=== PATIENT | female | born 1960 | race Caucasian/White ===

== ENCOUNTER → 2016-03-17 | Outpatient (REF) | payer OTHER ==
[~2016-03-17] MED LIST: CALC500T36 PO; CLAR1TAB2 PO; CYAN25TA PO; EFFE75CA75 PO; FLON0.054; FLUT11IN INH; MULT1TAB8 PO; MULTCAP PO; PRIL40CA PO; TRAZ50TA4 PO; VIST25CA PO; VITA250L PO
[2016-03-17 11:17] LABS: MEAN CORPUSCULAR HEMOGLOBIN 24.8 pg (27.0-33.0); MEAN CORPUSCULAR HGB CONC 30.7 g/dl (32.0-36.5); MEAN CORPUSCULAR VOLUME 80.9 fl (80.0-96.0); RED CELL DISTRIBUTION WIDTH 15.9 % (11.5-14.5); WHITE BLOOD COUNT 5.7 K/mm3 (4.0-10.0)
[2016-03-17 11:43] LABS: VITAMIN B12 LEVEL 635 PG/ML (247-911)
[2016-03-17 11:57] LABS: ALBUMIN 3.8 GM/DL (3.2-5.2); ALKALINE PHOSPHATASE 92 U/L (45-117); ALT/SGPT 39 U/L (12-78); ANION GAP 8 MEQ/L (8-16); AST/SGOT 31 U/L (15-37); BILIRUBIN,TOTAL 0.1 MG/DL (0.2-1.0); BLOOD UREA NITROGEN 9 MG/DL (7-18); CALCIUM LEVEL 8.7 MG/DL (8.5-10.1); CARBON DIOXIDE LEVEL 27 MEQ/L (21-32); CHLORIDE LEVEL 107 MEQ/L (98-107); CREATININE FOR GFR 0.75 MG/DL (0.55-1.02); FREE T4 1.28 NG/DL (0.76-1.46); GLOMERULAR FILTRATION RATE > 60.0 (>51); GLUCOSE, FASTING 77 MG/DL (70-105); POTASSIUM SERUM 4.7 MEQ/L (3.5-5.1); SODIUM LEVEL 142 MEQ/L (136-145); TOTAL PROTEIN 7.6 GM/DL (6.4-8.2)
== END | disposition home or self-care (01) ==
LOC: M SFHCCAPE 08:23 → M SFHCCLAY 08:26
PROVIDERS: ATTEND Family Medicine
DX: Z98.890 Other specified postprocedural states (principal); E03.9 Hypothyroidism, unspecified

== ENCOUNTER 2016-07-28 16:12 | Inpatient (IN) | payer MEDICAID, OTHER ==
[~2016-07-28] VITALS: Ht 157.5 cm; Wt 76.9 kg
[2016-07-28] MEDS ORDERED: VIIB40TA PO (16:26)
[2016-07-28] MEDS ORDERED: HYDR1CAP25 PO (16:26)
[2016-07-28] MEDS ORDERED: PRAZ2CAP PO (16:26)
[2016-07-28] MEDS ORDERED: LEVO75TA4 PO (16:26)
[2016-07-28] MEDS ORDERED: OMEP20CA3 PO (16:26)
[2016-07-28] MEDS ORDERED: TRAZ100T4 PO (16:26)
[2016-07-28] MEDS ORDERED: LEUC10TA PO (16:26)
[2016-07-28 16:48] LABS: BASO % 0.8 % (0.0-1.0); EOS % 0.7 % (0.0-3.0); LARGE UNSTAINED CELL # 0.2 K/mm3 (0.0-0.4); LARGE UNSTAINED CELL % 2.7 % (0.0-4.0); LYMPH # 1.7 K/mm3 (1.5-4.5); LYMPH % 24.9 % (24.0-44.0); MEAN CORPUSCULAR HEMOGLOBIN 24.7 pg (27.0-33.0); MEAN CORPUSCULAR HGB CONC 31.4 g/dl (32.0-36.5); MEAN CORPUSCULAR VOLUME 78.5 fl (80.0-96.0); MONO # 0.3 K/mm3 (0.0-0.8); MONO % 4.1 % (0.0-5.0); NEUTROPHILS % 66.8 % (36.0-66.0); PLATELET COUNT, AUTOMATED 347 k/mm3 (150-450)
[2016-07-28 17:02] LABS: CONTROL LINE HCG INT CTR LINE PRESENT
[2016-07-28 17:19] LABS: ALBUMIN 3.9 GM/DL (3.2-5.2); ALBUMIN/GLOBULIN RATIO 1.08 (1.00-1.93); ALKALINE PHOSPHATASE 107 U/L (45-117); ALT/SGPT 177 U/L (12-78); ANION GAP 13 MEQ/L (8-16); AST/SGOT 240 U/L (15-37); BILIRUBIN,DIRECT 0.1 MG/DL (0.0-0.2); BILIRUBIN,TOTAL 0.3 MG/DL (0.2-1.0); BLOOD UREA NITROGEN 11 MG/DL (7-18); CALCIUM LEVEL 8.5 MG/DL (8.5-10.1); CARBON DIOXIDE LEVEL 24 MEQ/L (21-32); CHLORIDE LEVEL 98 MEQ/L (98-107); CREATININE FOR GFR 0.64 MG/DL (0.55-1.02); GLOMERULAR FILTRATION RATE > 60.0 (>51); GLUCOSE, FASTING 67 MG/DL (70-105); POTASSIUM SERUM 4.2 MEQ/L (3.5-5.1); SODIUM LEVEL 135 MEQ/L (136-145); TOTAL PROTEIN 7.5 GM/DL (6.4-8.2)
[2016-07-28] MEDS ORDERED: DEXTROSE 50% 50 ML VIAL IV ONE (18:30)
[2016-07-28 19:48] LABS: METHADONE URINE NEGATIVE (NEGATIVE)
[2016-07-29] MEDS ORDERED: PHENobarbital 30 MG TAB PO ONE (00:30)
[2016-07-29] MEDS ORDERED: LEVOTHYROXINE 0.075 MG TAB (75 MCG) PO SCH (06:00)
--- NOTE | 2016-07-29 07:28 | ECGEPIP ---
Stationary ECG Study [facility] - ED Test Date: 2016-07-28 Pat Name: ERI ARITA Department: Room: - Gender: F Display Department Manager: PB : 1960 Requested By: LISSET Adams Order Number: [id number] Reading MD: Sugey Mauricio Measurements Intervals [place] Rate: 95 P: 66 WV: 168 QRS: 18 QRSD: 98 T: 38 QT: 384 QTc: 483 Interpretive Statements SINUS RHYTHM NSTTW ABNORMALITY INCREASED RATE 02/08/14 Electronically Signed On 07-29-2016 7:28:13 EDT by Sugey Mauricio
[2016-07-29] MEDS ORDERED: OXAZEPAM 15 MG CAP PO ONE (07:30)
[2016-07-29] MEDS ORDERED: ACETAMINOPHEN 325 MG TAB PO ONE (07:30)
[2016-07-29] MEDS ORDERED: TYLE325T5 PO (11:59)
[2016-07-29] MEDS ORDERED: LORATAB PO (11:59)
[2016-07-29] MEDS ORDERED: FLUT1SPR2 (11:59)
[2016-07-29 17:55] VITALS: BP 170/108
[2016-07-29] MEDS ORDERED: hydrOXYzine 25 MG TAB PO PRN (18:30)
[2016-07-29] MEDS ORDERED: MOM 30ML SUSPENSION UDC PO PRN (18:30)
[2016-07-29] MEDS ORDERED: LORazepam 2 MG TAB PO PRN (18:30)
[2016-07-29] MEDS ORDERED: MAALOX 30 ML SUSP *UDC PO PRN (18:30)
[2016-07-29 18:32] VITALS: BP 170/108
[2016-07-29] MEDS: OMEPRAZOLE 20 MG CAP PO SCH (19:05)
[2016-07-29] MEDS: FOLIC ACID 1 MG TAB PO SCH (19:05)
[2016-07-29] MEDS: MULTIVITAMINS/MINERALS THERAP 1 TAB PO SCH (19:05)
[2016-07-29] MEDS: ACETAMINOPHEN TAB 650MG DOSE (2X325MG) PO PRN (19:06)
[2016-07-29] MEDS: THIAMINE 100 MG TAB PO SCH (23:54)
[2016-07-29] MEDS: traZODone 100 MG TAB PO SCH (23:54)
[2016-07-29] MEDS: PRAZOSIN 1 MG CAP PO SCH (23:55)
[2016-07-30 06:00] VITALS: BP 144/60
[2016-07-30] MEDS ORDERED: LEVOTHYROXINE 0.075 MG TAB (75 MCG) PO SCH (06:00)
[2016-07-30] MEDS: LEUCOVORIN 5 MG TAB PO SCH (09:19)
[2016-07-30] MEDS: FOLIC ACID 1 MG TAB PO SCH (09:20)
[2016-07-30] MEDS: LORATADINE 10 MG TAB PO SCH (09:20)
[2016-07-30] MEDS: THIAMINE 100 MG TAB PO SCH ×2 (09:20→21:22)
[2016-07-30] MEDS: OMEPRAZOLE 20 MG CAP PO SCH (09:20)
[2016-07-30] MEDS: MULTIVITAMINS/MINERALS THERAP 1 TAB PO SCH (09:20)
[2016-07-30] MEDS: ACETAMINOPHEN TAB 650MG DOSE (2X325MG) PO PRN (09:28)
[2016-07-30 09:29] VITALS: BP 119/80
[2016-07-30] MEDS: LEVOTHYROXINE 0.075 MG TAB (75 MCG) PO SCH (10:03)
[2016-07-30 12:00] VITALS: BP 118/79
[2016-07-30 18:00] VITALS: BP 133/81
[2016-07-30] MEDS: FLUTICASONE PROP 0.05% NASAL SPRAY 16 GM (FLONASE) PRN (20:49)
[2016-07-30] MEDS: traZODone 100 MG TAB PO SCH (21:22)
[2016-07-30] MEDS: QUEtiapine FUMARATE 50 MG TAB PO SCH (21:22)
[2016-07-30] MEDS: PRAZOSIN 1 MG CAP PO SCH (21:23)
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
[2016-07-30 21:45] VITALS: BP 136/84
[2016-07-30 22:24] VITALS: BP 158/98
--- NOTE | 2016-07-31 04:15 | HPE ---
DATE OF ADMISSION: 07/29/2016 HISTORY OF PRESENT ILLNESS: Please refer to psychiatric history and evaluation for further details on this admission. This examination and history is intended for medical issues, which may need treatment, followup or consult on this 55-year-old female. ALLERGIES: SULFITES. SOCIAL HISTORY: The patient resides in [place]. She is . She works at the [employer]. She does not smoke cigarettes. She drinks nightly vodka. FAMILY HISTORY: Noncontributory. PAST MEDICAL HISTORY: 1. Depression. 2. Anxiety. 3. History of latent tuberculosis. 4. History of hypothyroid, euthyroid. PAST SURGICAL HISTORY: 1. Gastric bypass 2009. 2. (C) section. 3. Varicose vein stripping. LABORATORY STUDIES: WBC 6.0, hemoglobin 11.1, hematocrit 35.7, MCV 78.5, platelets 347. Sodium 135, potassium 4.2, chloride 98, CO2 24, BUN and creatinine 11 and 0.64. AST was elevated at 240, ALT 177. TSH 0.119. EtOH was 0.387. HOME MEDICATIONS: - Tylenol 650 by mouth every 4 hours as needed for pain - Flonase nasal spray two sprays each nostril daily as needed for congestion - hydroxyzine 25 mg by mouth four times a day as needed for anxiety - leucovorin calcium 10 mg by mouth daily - levothyroxine 75 mcg by mouth daily - loratadine 10 mg by mouth daily - omeprazole 20 mg by mouth daily - prazosin 4 mg by mouth nightly for night terrors - trazodone 100 mg by mouth nightly insomnia - Viibryd 40 mg by mouth daily REVIEW OF SYSTEMS: 10-system review was done. Her only complaint was of nasal stuffiness. She did not feel the Flonase was helping. Loratadine was added. PHYSICAL EXAMINATION: 55-year-old cooperative female in no acute distress. Height 62 inches, weight 75.6 kg, body mass index (BMI) 30.5. Blood pressure 118/79, pulse 84, respirations 16, temperature 98.8. The patient is alert and oriented times three. Pupils equal and react to light. Extraocular muscles intact. Cornea and sclerae clear. Conjunctivae were normal. No facial asymmetry. Pharynx, tongue and gums pink and moist. Tongue is midline. Neck is supple without lymphadenopathy. No thyromegaly, no goiter. Carotids 2+ without bruit. Chest clear to auscultation without wheeze or retraction. Heart is regular. Abdomen is benign. Bowel sounds positive. Genitourinary/rectal: Not done. Extremities show equal strength, full range of motion. No cyanosis, clubbing or edema. Peripheral pulses equal and palpable bilaterally. Skin is warm and dry. EKG on file shows sinus rhythm. IMPRESSION/PLAN: 1. Psychiatric plan per psychiatry. 2. Euthyroid, hypothyroidism. Thyroid-stimulating hormone (TSH) slightly low. Get a thyroid panel. 3. History of alcohol abuse. Elevated liver function tests (LFTs). Get a liver panel in the morning. Monitor for alcohol withdrawal. 4. Nasal congestion. Continue Flonase. Continue loratadine.
[2016-07-31] MEDS: LEVOTHYROXINE 0.075 MG TAB (75 MCG) PO SCH (06:11)
[2016-07-31 06:32] VITALS: BP 107/70
[2016-07-31 07:27] LABS: ALBUMIN 3.4 GM/DL (3.2-5.2); ALBUMIN/GLOBULIN RATIO 1.03 (1.00-1.93); BILIRUBIN,DIRECT 0.2 MG/DL (0.0-0.2); BILIRUBIN,TOTAL 0.5 MG/DL (0.2-1.0); THYROXINE (T4) 6.9 UG/DL (4.5-12.0); TOTAL PROTEIN 6.7 GM/DL (6.4-8.2)
[2016-07-31] MEDS: FLUTICASONE PROP 0.05% NASAL SPRAY 16 GM (FLONASE) PRN (08:35)
[2016-07-31] MEDS: LEUCOVORIN 5 MG TAB PO SCH (08:36)
[2016-07-31] MEDS: MULTIVITAMINS/MINERALS THERAP 1 TAB PO SCH (08:36)
[2016-07-31] MEDS: OMEPRAZOLE 20 MG CAP PO SCH (08:36)
[2016-07-31] MEDS: FOLIC ACID 1 MG TAB PO SCH (08:36)
[2016-07-31] MEDS: THIAMINE 100 MG TAB PO SCH ×2 (08:36→21:16)
[2016-07-31] MEDS: LORATADINE 10 MG TAB PO SCH (08:36)
[2016-07-31] MEDS: ACETAMINOPHEN TAB 650MG DOSE (2X325MG) PO PRN ×3 (09:26→21:16)
--- NOTE | 2016-07-31 10:53 | MHIPNPDOC ---
[facility] Progress Note Progress Note DATE OF SERVICE: 07/31/16 HISTORY: Day 3 of admission. Pt admitted for depression, overusing alcohol. VITAL SIGNS: See below. NEW TEST RESULTS: pending CURRENT MEDICATIONS: See below. MENTAL STATUS EXAMINATION: Patient is a 55-year old female, who is dressed in hospital attire, wearing eye glasses, short hair, cooperative. Speech: Is spontaneous Language skills are good Thought processes including: goal directed Thought content: appropriate Abstract reasoning, and computation: concrete Description of associations:good. Description of abnormal or psychotic thoughts: no psychotic symptoms observed or illicted. No SI, does admitted to attempting suicide by over consumption of alcohol. Judgment: poor Insight: good. Orientation: well oriented in all spheres. Recent and remote memory: grossly intact Attention span and concentration: good. Fund of knowledge: full Mood:depressed. Affect: congruent DIAGNOSES: 1. MDD severe, recurrent, without psychotic features 2. alcohol dependence 3. s/p Gastric bypass 4. Hypothyroidism ASSESSMENT: Pt is alert and oriented. participated fully in discussion today. Taking medications as prescribed and adjusting to the unit. pt recently started a job at the [employer] and is worried about keeping the job. She is hopeful she will not to remain very long in the hospital. She states that her problems with DSS are the reason she wanted to kill herself by drinking. She did not take her bedtime meds when she drank. She was drinking daily since May, after work due to her despair over the DSS issue. She thought it would be better just to be . Pt has case management and outpatient MH services in place. She has her own apartment in [place]. She has a son in [facility] and a daughter & son in [place]. She has a family h/o alcoholism and suicide which places her at a higher risk. She was offered and agreed to begin treatment with [facility] to help her cravings for alcohol. She denies the need for rehab or inpt substance abuse treatment. She does [place] want to attend meetings [place] She does not feel her anonymity will be secure if she attended. She is willing to read materials that discuss living sober. DCP may have some to share with her. She can also obtain from the library. She asked about on-line meetings and said she may look into this as well. Pt is eating and sleeping well. Enc to attend groups daily and engage in unit milieu. Pt states it is her intent to do so. No manic symptoms observed. No psychotic symptoms illicited. Pt is depressed and is currently without her Viibryd. Her returned case inspector was contacted and she will obtain pts med from her apartment and bring it in today. MANAGEMENT PLAN: Resume Viibryd deep 40 mg po daily, begin Campral 666 mg tid daily. Discharge may occur Sunday or . Labs for thyroid, vitamin D ordered, CMP-pending TIME SPENT: 30 minutes. Vital Signs Vital Signs Date Time Temp Pulse Resp B/P (MAP) Pulse Ox O2 Delivery O2 Flow Rate FiO2 07/31/16 06:32 97.6 87 16 107/70 (82) 07/29/16 17:55 96 Room Air Laboratory Data 24H Labs Laboratory Tests 2 07/31/16 06:40: Aspartate Amino Transf (AST/SGOT) 98H, Alanine Aminotransferase (ALT/SGPT) 97H, Alkaline Phosphatase 88, Total Bilirubin 0.5#, Direct Bilirubin 0.2, Total Protein 6.7, Albumin 3.4, Albumin/Globulin Ratio 1.03, Thyroid Stimulating Hormone (TSH) 3.710, Free Thyroxine Index 2.6, Thyroxine (T4) 6.9, Triiodothyronine (T3) Uptake 37 Current Medications Current Medications Acamprosate (Campral) 666 mg TID PO ; Start 07/31/16 at 16:00; Stop 08/30/16 at 15 :59; Status UNV Acetaminophen (Tylenol Tab) 650 mg Q6HP PRN PO HEADACHE or DISCOMFORT Last administered on 07/31/16 09:26; Start 07/29/16 at 18:30; Stop 08/28/16 at 18:29 Al Hydrox/Mg Hydrox/Simethicone (Mylanta) 30 ml Q4HP PRN PO HEARTBURN/ INDIGESTION; Start 07/29/16 at 18:30; Stop 08/28/16 at 18:29 Fluticasone Propionate (Flonase 0.05% Nasal [place]) 2 spray DAILY PRN NA CONGESTION Last administered on 07/31/16 08:35; Start 07/29/16 at 18:30; Stop 08/28/16 at 18:29 Folic Acid (Folic Acid) 1 mg DAILY PO Last administered on 07/31/16 08:36; Start 07/29/16 at 09:00; Stop 08/28/16 at 08:59 Home Med (Med Rec Complete!) ASDIRECTED XX ; Start 07/29/16 at 12:00; Stop at 12:01; Status DC Hydroxyzine HCl (Atarax) 25 mg QID PRN PO ANXIETY/AGITATION Last administered on 07/30/16 09:31; Start 07/29/16 at 18:30; Stop 08/28/16 at 18:29 Leucovorin Calcium (Wellcovorin) 10 mg DAILY PO Last administered on 07/31/16 08:36; Start 07/30/16 at 09:00; Stop 08/29/16 at 08:59 Levothyroxine Sodium (Synthroid) 0.075 mg DAILY@06 PO Last administered on 08:27; Start 07/29/16 at 06:00; Stop 07/29/16 at 18:35; Status DC Levothyroxine Sodium (Synthroid) 0.075 mg DAILY@0600 PO Last administered on 06:11; Start 07/30/16 at 06:00; Stop 08/29/16 at 05:59 Levothyroxine Sodium (Synthroid) 75 mg DAILY@0600 PO ; Start 07/30/16 at 06:00; Stop 07/30/16 at 06:59; Status DC Loratadine (Claritin) 10 mg DAILY PO Last administered on 07/31/16 08:36; Start 07/30/16 at 09:00; Stop 08/29/16 at 08:59 Lorazepam (Ativan) 2 mg ASDIRECTED PRN PO SEE PROTOCOL Last administered on 07/29 19:05; Start 07/29/16 at 18:30; Stop 08/05/16 at 18:29 Magnesium Hydroxide (Milk Of Magnesia) 30 ml DAILYPRN PRN PO CONSTIPATION; Start 07/29/16 at 18:30; Stop 08/28/16 at 18:29 Miscellaneous (Unresolved Patient Own Med Order) SEE LABEL COMMENTS UNRESOLVED XX ; Start 07/29/16 at 00:01; Stop 08/28/16 at 00:00 Multivitamins (Theragram-M) 1 tab DAILY PO Last administered on 07/31/16 08:36 ; Start 07/29/16 at 09:00; Stop 08/28/16 at 08:59 Omeprazole (PriLOSEC) 20 mg DAILY PO Last administered on 07/31/16 08:36; Start 07/29/16 at 09:00; Stop 08/28/16 at 08:59 Patient Own Medication (Patient'S Own Med) Viibryd 40MG PO Daily DAILY PO ; Start 07/30/16 at 09:00; Stop 08/29/16 at 08:59; Status UNV Prazosin HCl (Minipress) 4 mg QHS PO Last administered on 07/30/16 21:23; Start 07/29/16 at 21:00; Stop 08/28/16 at 20:59 Quetiapine Fumarate (SEROquel) 50 mg QHS PO Last administered on 07/30/16 21:22 ; Start 07/30/16 at 21:00; Stop 08/29/16 at 20:59 Thiamine HCl (Thiamine HCl) 100 mg BID PO Last administered on 07/31/16 08:36; Start 07/29/16 at 21:00; Stop 08/01/16 at 20:59 Trazodone HCl (Desyrel) 100 mg QHS PO Last administered on 07/30/16 21:22; Start 07/29/16 at 21:00; Stop 08/28/16 at 20:59 Allergies Coded Allergies: Sulfa Antibiotics (Verified Allergy, Unknown, 02/09/14) Sulfites (Unverified Allergy, Unknown, 02/10/14) Christal Sharp Jul 31, 2016 10:53
[2016-07-31] MEDS: ACAMPROSATE CALCIUM 333 MG TABLET (CAMPRAL) PO SCH ×3 (12:02→21:16)
[2016-07-31 12:04] VITALS: BP 132/92
[2016-07-31] MEDS: PSEUDOEPHEDRINE 30 MG TAB PO PRN ×2 (15:06→20:15)
[2016-07-31 18:00] VITALS: BP 132/77
[2016-07-31] MEDS: QUEtiapine FUMARATE 50 MG TAB PO SCH (21:16)
[2016-07-31] MEDS: traZODone 100 MG TAB PO SCH (21:16)
[2016-07-31] MEDS: PRAZOSIN 1 MG CAP PO SCH (21:16)
[2016-08-01] MEDS: LEVOTHYROXINE 0.075 MG TAB (75 MCG) PO SCH (05:53)
[2016-08-01 06:43] VITALS: BP 102/61
[2016-08-01 07:39] LABS: ALBUMIN 3.4 GM/DL (3.2-5.2); ALBUMIN/GLOBULIN RATIO 1.03 (1.00-1.93); ALKALINE PHOSPHATASE 96 U/L (45-117); ALT/SGPT 134 U/L (12-78); ANION GAP 7 MEQ/L (8-16); AST/SGOT 181 U/L (15-37); BILIRUBIN,TOTAL 0.4 MG/DL (0.2-1.0); BLOOD UREA NITROGEN 10 MG/DL (7-18); CALCIUM LEVEL 8.8 MG/DL (8.5-10.1); CARBON DIOXIDE LEVEL 28 MEQ/L (21-32); CHLORIDE LEVEL 103 MEQ/L (98-107); CREATININE FOR GFR 0.64 MG/DL (0.55-1.02); GLOMERULAR FILTRATION RATE > 60.0 (>51); GLUCOSE, FASTING 81 MG/DL (70-105); POTASSIUM SERUM 3.9 MEQ/L (3.5-5.1); SODIUM LEVEL 138 MEQ/L (136-145); TOTAL PROTEIN 6.7 GM/DL (6.4-8.2)
[2016-08-01] MEDS: MULTIVITAMINS/MINERALS THERAP 1 TAB PO SCH (08:26)
[2016-08-01] MEDS: THIAMINE 100 MG TAB PO SCH (08:26)
[2016-08-01] MEDS: OMEPRAZOLE 20 MG CAP PO SCH (08:26)
[2016-08-01] MEDS: LEUCOVORIN 5 MG TAB PO SCH (08:27)
[2016-08-01] MEDS: LORATADINE 10 MG TAB PO SCH (08:27)
[2016-08-01] MEDS: FOLIC ACID 1 MG TAB PO SCH (08:27)
[2016-08-01] MEDS: ACAMPROSATE CALCIUM 333 MG TABLET (CAMPRAL) PO SCH ×3 (08:27→21:20)
[2016-08-01] MEDS: FLUTICASONE PROP 0.05% NASAL SPRAY 16 GM (FLONASE) PRN (08:28)
[2016-08-01 08:42] VITALS: BP 132/89
[2016-08-01] MEDS ORDERED: PSEUDOEPHEDRINE 30 MG TAB PO PRN (09:30)
--- NOTE | 2016-08-01 09:36 | IPNPDOC ---
Subjective Date Seen The patient was seen on 08/01/16. Subjective Chief Complaint/HPI The patient is a 55-year-old female admitted with a reason for visit of Unspecified Depressive D/O & Etoh Use D/O. Events since last encounter Requested to evaluate Pt for allergic rhinitis. Pt states she has had nasal allergy symptoms. She is very upset that she does not have Sudafed ordered. She states this is the only thing that works for her. She denies rhinorrhea, FRANCIS, facial pain, ST. She states she has nasal congestion and pruritis. She states that at home she uses Benadryl with Claritin and Sudafed BID on average. Constitutional: Denies: Chills, Fever Eyes: Denies: Pain, Vision change ENT: Denies: Head Aches, Ear Pain, Dysphagia Pulmonary: Denies: Dyspnea, Cough Objective Physical Examination General Exam: Positive: Alert Eye Exam: Positive: PERRLA ENT Exam: Positive: Atraumatic, Mucous membr. moist/pink, Pharynx Normal, Other ENT (no TTP over sinus areas. ) Neck Exam: Positive: Supple Chest Exam: Positive: Clear to auscultation, Normal air movement Heart Exam: Positive: Rate Normal, Regular Rhythm, Normal S1, Normal S2, Negative: Murmurs, Rubs Skin Exam: Positive: Nl turgor and temperature Assessment /Plan Problems (1) Allergic rhinitis Status: Chronic Problem Text: * Sudafed given x 2 doses yesterday. Will continue with BID prn as Pt states this is the only thing that relieves her symptoms. * Will continue with Claritin 10 mg daily. * Add Azelastine nasal spray to regimen to see if this is helpful at all. . * Continue with Flonase 2 sprays daily. * Pt refuses saline nasal spray. * Monitor. (2) Elevated LFTs Status: Acute Problem Text: * Monitor CMP. * LFTs noted to be increased from yesterday. * Caution with medications that are liver metabolized. * Check Hepatitis profile * Check RUQ U/S. Plan/VTE VTE Prophylaxis Ordered?: No (ambulatory. ) VS, I&O, 24H, Fishbone Vital Signs/I&O Vital Signs Date Time Temp Pulse Resp B/P (MAP) Pulse Ox O2 Delivery O2 Flow Rate FiO2 08/01/16 08:42 91 132/89 08/01/16 06:43 98.4 16 07/29/16 17:55 96 Room Air Laboratory Data 24H LABS Laboratory Tests 2 08/01/16 07:00: Anion Gap 7L, Glomerular Filtration Rate > 60.0, Blood Urea Nitrogen 10, Creatinine 0.64, Sodium Level 138, Potassium Level 3.9, Chloride Level 103, Carbon Dioxide Level 28, Calcium Level 8.8, Aspartate Amino Transf (AST/SGOT) 181H, Alanine Aminotransferase (ALT/SGPT) 134H, Alkaline Phosphatase 96, Total Bilirubin 0.4, Total Protein 6.7, Albumin 3.4, Albumin/Globulin Ratio 1.03 CBC/BMP Laboratory Tests 08/01/16 07:00 Calcium Level 8.8, Aspartate Amino Transf (AST/SGOT) 181 H, Alanine Aminotransferase (ALT/SGPT) 134 H, Alkaline Phosphatase 96, Total Bilirubin 0.4 , Total Protein 6.7, Albumin 3.4 Sharon Quintana Aug 01, 2016 09:36
[2016-08-01] MEDS: AZELASTINE 137MCG NASAL SPY 30 ML (ASTELIN) SCH ×2 (11:44→21:19)
[2016-08-01 11:55] VITALS: BP 108/78
--- NOTE | 2016-08-01 17:15 | MHIPNPDOC ---
[facility] Progress Note Progress Note DATE OF SERVICE: 08/01/16 HISTORY: day 4 of admission. Pt admitted with overdose by alcohol. BAL 0.38 VITAL SIGNS: See below. NEW TEST RESULTS: CURRENT MEDICATIONS: See below. MENTAL STATUS EXAMINATION: Patient is a 55-year old female, who is dressed in street clothes, short hair, glasses, good eye contact. Speech: Is spontaneous Language skills are good Thought processes including: linear Thought content: her sinuses. Abstract reasoning, and computation: good. Description of associations: good Description of abnormal or psychotic thoughts: none, denies current SI or HI. denies psychotic symptoms Judgment: limited Insight: poor. Orientation: well oriented in all spheres. Recent and remote memory: good Attention span and concentration: good Fund of knowledge: full Mood: depressed. Affect:irritable. DIAGNOSES: 1. MDD severe, recurrent, without psychotic features 2. alcohol dependence 3. s/p Gastric bypass 4. Hypothyroidism ASSESSMENT:pt attended team meeting. pt c/o lack of attention to her medical needs particularly her sinuses. Seen by Sharon today and informed that due to elevation of liver enzymes Sudafed not recommended but she did order it on pts insistence. Pt rude toward staff regarding this issue, calling her treatment "inappropriate". (it is suspected that patient may be taking more decongestant medication than she admits to taking). Pt is tolerating Campral without side effects. Informed that the team is recommending intensive outpatient alcohol treatment. Pt is reluctant to do anything that will interfere with her employment. pt reports eating and sleeping well. She is attending therapeutic programming. MANAGEMENT PLAN: continue med trial and observational status, encourage sober living and using recovery tools. Enc developing a plan that supports a sober life style. Will be referred to [facility] addiction treatment upon discharge. Staff to supply her with a list of AA meetings outside the [facility]. TIME SPENT: 30 minutes. Vital Signs Vital Signs Date Time Temp Pulse Resp B/P (MAP) Pulse Ox O2 Delivery O2 Flow Rate FiO2 08/01/16 11:55 97.9 91 16 108/78 (88) 07/29/16 17:55 96 Room Air Laboratory Data 24H Labs Laboratory Tests 2 08/01/16 07:00: Anion Gap 7L, Glomerular Filtration Rate > 60.0, Blood Urea Nitrogen 10, Creatinine 0.64, Sodium Level 138, Potassium Level 3.9, Chloride Level 103, Carbon Dioxide Level 28, Calcium Level 8.8, Aspartate Amino Transf (AST/SGOT) 181H, Alanine Aminotransferase (ALT/SGPT) 134H, Alkaline Phosphatase 96, Total Bilirubin 0.4, Total Protein 6.7, Albumin 3.4, Albumin/Globulin Ratio 1.03 CBC/BMP Laboratory Tests 08/01/16 07:00 Calcium Level 8.8, Aspartate Amino Transf (AST/SGOT) 181 H, Alanine Aminotransferase (ALT/SGPT) 134 H, Alkaline Phosphatase 96, Total Bilirubin 0.4 , Total Protein 6.7, Albumin 3.4 Current Medications Current Medications Acamprosate (Campral) 666 mg TID PO Last administered on 08/01/16 15:42; Start 07/31/16 at 09:00; Stop 08/30/16 at 08:59 Acetaminophen (Tylenol Tab) 650 mg Q6HP PRN PO HEADACHE or DISCOMFORT Last administered on 07/31/16 21:16; Start 07/29/16 at 18:30; Stop 08/01/16 at 09:35; Status DC Al Hydrox/Mg Hydrox/Simethicone (Mylanta) 30 ml Q4HP PRN PO HEARTBURN/ INDIGESTION; Start 07/29/16 at 18:30; Stop 08/28/16 at 18:29 Azelastine HCl (Astelin) 2 spray BID NA Last administered on 08/01/16 11:44; Start 08/01/16 at 09:00; Stop 08/31/16 at 08:59 Fluticasone Propionate (Flonase 0.05% Nasal [place]) 2 spray DAILY NA ; Start 08/02 at 09:00; Stop 09/01/16 at 08:59 Fluticasone Propionate (Flonase 0.05% Nasal [place]) 2 spray DAILY PRN NA CONGESTION Last administered on 08/01/16 08:28; Start 07/29/16 at 18:30; Stop 08/01/16 at 09:17; Status DC Folic Acid (Folic Acid) 1 mg DAILY PO Last administered on 08/01/16 08:27; Start 07/29/16 at 09:00; Stop 08/28/16 at 08:59 Home Med (Med Rec Complete!) ASDIRECTED XX ; Start 07/29/16 at 12:00; Stop at 12:01; Status DC Hydroxyzine HCl (Atarax) 25 mg QID PRN PO ANXIETY/AGITATION Last administered on 07/30/16 09:31; Start 07/29/16 at 18:30; Stop 08/28/16 at 18:29 Leucovorin Calcium (Wellcovorin) 10 mg DAILY PO Last administered on 08/01/16 08:27; Start 07/30/16 at 09:00; Stop 08/29/16 at 08:59 Levothyroxine Sodium (Synthroid) 0.075 mg DAILY@06 PO Last administered on 08:27; Start 07/29/16 at 06:00; Stop 07/29/16 at 18:35; Status DC Levothyroxine Sodium (Synthroid) 0.075 mg DAILY@0600 PO Last administered on 05:53; Start 07/30/16 at 06:00; Stop 08/29/16 at 05:59 Levothyroxine Sodium (Synthroid) 75 mg DAILY@0600 PO ; Start 07/30/16 at 06:00; Stop 07/30/16 at 06:59; Status DC Loratadine (Claritin) 10 mg DAILY PO Last administered on 08/01/16 08:27; Start 07/30/16 at 09:00; Stop 08/29/16 at 08:59 Lorazepam (Ativan) 2 mg ASDIRECTED PRN PO SEE PROTOCOL Last administered on 07/29 19:05; Start 07/29/16 at 18:30; Stop 08/05/16 at 18:29 Magnesium Hydroxide (Milk Of Magnesia) 30 ml DAILYPRN PRN PO CONSTIPATION; Start 07/29/16 at 18:30; Stop 08/28/16 at 18:29 Miscellaneous (Unresolved Patient Own Med Order) SEE LABEL COMMENTS UNRESOLVED XX ; Start 07/29/16 at 00:01; Stop 07/31/16 at 21:28; Status DC Multivitamins (Theragram-M) 1 tab DAILY PO Last administered on 08/01/16 08:26 ; Start 07/29/16 at 09:00; Stop 08/28/16 at 08:59 Omeprazole (PriLOSEC) 20 mg DAILY PO Last administered on 08/01/16 08:26; Start 07/29/16 at 09:00; Stop 08/28/16 at 08:59 Patient Own Medication (Patient'S Own Med) 1 ea DAILY PO Last administered on 08:26; Start 08/01/16 at 09:00; Stop 08/31/16 at 08:59 Patient Own Medication (Patient'S Own Med) Viibryd 40MG PO Daily DAILY PO ; Start 07/31/16 at 09:00; Stop 07/31/16 at 21:28; Status DC Prazosin HCl (Minipress) 4 mg QHS PO Last administered on 07/31/16 21:16; Start 07/29/16 at 21:00; Stop 08/28/16 at 20:59 Pseudoephedrine HCl (Sudafed) 30 mg BIDP PRN PO NASAL CONGESTION Last administered on 07/31/16 20:15; Start 07/31/16 at 14:45; Stop 08/01/16 at 06:00; Status DC Pseudoephedrine HCl (Sudafed) 30 mg BIDP PRN PO NASAL CONGESTION; Start at 09:30; Stop 08/31/16 at 09:29 Quetiapine Fumarate (SEROquel) 50 mg QHS PO Last administered on 07/31/16 21:16 ; Start 07/30/16 at 21:00; Stop 08/29/16 at 20:59 Thiamine HCl (Thiamine HCl) 100 mg BID PO Last administered on 08/01/16 08:26; Start 07/29/16 at 21:00; Stop 08/01/16 at 20:59 Trazodone HCl (Desyrel) 100 mg QHS PO Last administered on 07/31/16 21:16; Start 07/29/16 at 21:00; Stop 08/28/16 at 20:59 Allergies Coded Allergies: Sulfa Antibiotics (Verified Allergy, Unknown, 02/09/14) Sulfites (Unverified Allergy, Unknown, 02/10/14) Christal Sharp Aug 01, 2016 17:15
[2016-08-01 18:00] VITALS: BP 151/91
[2016-08-01] MEDS: PRAZOSIN 1 MG CAP PO SCH (21:20)
[2016-08-01] MEDS: QUEtiapine FUMARATE 50 MG TAB PO SCH (21:20)
[2016-08-01] MEDS: traZODone 100 MG TAB PO SCH (21:20)
[2016-08-02 06:08] VITALS: BP 88/53
[2016-08-02] MEDS: LEVOTHYROXINE 0.075 MG TAB (75 MCG) PO SCH (06:12)
[2016-08-02] MEDS: AZELASTINE 137MCG NASAL SPY 30 ML (ASTELIN) SCH ×2 (09:00→20:09)
[2016-08-02] MEDS: FLUTICASONE PROP 0.05% NASAL SPRAY 16 GM (FLONASE) SCH (09:07)
[2016-08-02] MEDS: FOLIC ACID 1 MG TAB PO SCH (09:08)
[2016-08-02] MEDS: LEUCOVORIN 5 MG TAB PO SCH (09:08)
[2016-08-02] MEDS: ACAMPROSATE CALCIUM 333 MG TABLET (CAMPRAL) PO SCH ×3 (09:08→22:28)
[2016-08-02] MEDS: MULTIVITAMINS/MINERALS THERAP 1 TAB PO SCH (09:09)
[2016-08-02] MEDS: OMEPRAZOLE 20 MG CAP PO SCH (09:09)
[2016-08-02] MEDS: LORATADINE 10 MG TAB PO SCH (09:09)
[2016-08-02 09:15] LABS: ALBUMIN 3.7 GM/DL (3.2-5.2); ALBUMIN/GLOBULIN RATIO 1.12 (1.00-1.93); ALKALINE PHOSPHATASE 97 U/L (45-117); ALT/SGPT 157 U/L (12-78); ANION GAP 5 MEQ/L (8-16); AST/SGOT 193 U/L (15-37); BILIRUBIN,TOTAL 0.4 MG/DL (0.2-1.0); BLOOD UREA NITROGEN 10 MG/DL (7-18); CALCIUM LEVEL 8.8 MG/DL (8.5-10.1); CARBON DIOXIDE LEVEL 29 MEQ/L (21-32); CHLORIDE LEVEL 105 MEQ/L (98-107); CREATININE FOR GFR 0.67 MG/DL (0.55-1.02); GLOMERULAR FILTRATION RATE > 60.0 (>51); GLUCOSE, FASTING 85 MG/DL (70-105); POTASSIUM SERUM 4.4 MEQ/L (3.5-5.1); SODIUM LEVEL 139 MEQ/L (136-145)
--- NOTE | 2016-08-02 10:49 | REP ---
Hepatic sonography: History: Elevated liver function studies. No comparison imaging. Findings: Scanning through the right upper quadrant of the abdomen demonstrates a somewhat hyperechoic liver parenchymal texture diffusely consistent with fatty infiltration. The only focal liver lesion is a partially septated cyst measuring 1.1 cm in greatest diameter in the right lobe. The gallbladder is normal in size with a smooth thin wall. No evidence of stone or polyp. Common bile duct is normal measuring 0.3 cm in greatest diameter. Pancreatic tail is partially obscured by abdominal gas. No pancreatic abnormality is seen. There is no evidence of ascites or right renal abnormality. The right kidney measures 10.9 x 5.5 x 4.3 cm. Impression: Evidence of fatty infiltration of the liver. 1.1 cm cyst in the right lobe of the liver. Otherwise negative. Signed by Hero Balderas MD 08/02/2016 01:34 P
--- NOTE | 2016-08-02 10:55 | MHIPNPDOC ---
[facility] Progress Note Progress Note DATE OF SERVICE: 08/02/16 HISTORY: Day 4 of admission. Pt attempting suicide by alcohol intoxication. Level at admission was 0.38 VITAL SIGNS: See below. NEW TEST RESULTS: liver ultrasound done today/elevated liver enzymes CURRENT MEDICATIONS: See below. MENTAL STATUS EXAMINATION: Patient is a 55-year old female, who is dressed appropriately, petite in stature , clean, good eye contact, complains about everything. Speech: Is spontaneous and clear Language skills are good Thought processes including: goal directed Thought content: critical of care and processes of unit. Abstract reasoning, and computation: good. Description of associations: good. Description of abnormal or psychotic thoughts: Denies current SI or HI, no psychotic symptoms illicited Judgment: limited Insight: fair. Orientation: well oriented in all spheres. Recent and remote memory: intact Attention span and concentration: good Fund of knowledge: full Mood: euthymic. Affect: irritable. DIAGNOSES: 1. MDD severe, recurrent, without psychotic features 2. alcohol dependence 3. s/p Gastric bypass 4. Hypothyroidism ASSESSMENT:pt is attending programming and is adhering to unit protocols. Taking medications as prescribed and getting along well with peers. Everyday she has a new complaint and criticizes staff and hospital about procedures. For instance she claims she has report insomnia to video games storywriter and video games storywriter has ignored this. Door Trimmer increased trazodone first day and no further reports were every received by video games storywriter that pat could not sleep. She is upset that her liver is being worked up and feels she was not made aware of it. Pt was admitted on the weekend and actions taken and information given during writers absence cannot be known. Support and reassurance provided. Pt's primary focus is returning to work and keeping her apartment. She states she will not attend programming for alcoholism or mental health unless scheduled on her day off which is . MANAGEMENT PLAN: continue observation, medications and programming. TONIO has had conversation with Pts son in [place], [place]. Meeting today with seed cleaning manager with discharge if stable. TIME SPENT: 15 minutes. Vital Signs Vital Signs Date Time Temp Pulse Resp B/P (MAP) Pulse Ox O2 Delivery O2 Flow Rate FiO2 08/02/16 06:08 97.7 86 18 88/53 (65) 07/29/16 17:55 96 Room Air Laboratory Data 24H Labs Laboratory Tests 2 08/02/16 07:47: Anion Gap 5L, Glomerular Filtration Rate > 60.0, Blood Urea Nitrogen 10, Creatinine 0.67, Sodium Level 139, Potassium Level 4.4, Chloride Level 105, Carbon Dioxide Level 29, Calcium Level 8.8, Aspartate Amino Transf (AST/SGOT) 193H, Alanine Aminotransferase (ALT/SGPT) 157H, Alkaline Phosphatase 97, Total Bilirubin 0.4, Total Protein 7.0, Albumin 3.7, Albumin/Globulin Ratio 1.12 CBC/BMP Laboratory Tests 08/02/16 07:47 Calcium Level 8.8, Aspartate Amino Transf (AST/SGOT) 193 H, Alanine Aminotransferase (ALT/SGPT) 157 H, Alkaline Phosphatase 97, Total Bilirubin 0.4 , Total Protein 7.0, Albumin 3.7 Current Medications Current Medications Acamprosate (Campral) 666 mg TID PO Last administered on 08/02/16 09:08; Start 07/31/16 at 09:00; Stop 08/30/16 at 08:59 Acetaminophen (Tylenol Tab) 650 mg Q6HP PRN PO HEADACHE or DISCOMFORT Last administered on 07/31/16 21:16; Start 07/29/16 at 18:30; Stop 08/01/16 at 09:35; Status DC Al Hydrox/Mg Hydrox/Simethicone (Mylanta) 30 ml Q4HP PRN PO HEARTBURN/ INDIGESTION; Start 07/29/16 at 18:30; Stop 08/28/16 at 18:29 Azelastine HCl (Astelin) 2 spray BID NA Last administered on 08/01/16 21:19; Start 08/01/16 at 09:00; Stop 08/31/16 at 08:59 Fluticasone Propionate (Flonase 0.05% Nasal [place]) 2 spray DAILY NA Last administered on 08/02/16 09:07; Start 08/02/16 at 09:00; Stop 09/01/16 at 08:59 Fluticasone Propionate (Flonase 0.05% Nasal [place]) 2 spray DAILY PRN NA CONGESTION Last administered on 08/01/16 08:28; Start 07/29/16 at 18:30; Stop 08/01/16 at 09:17; Status DC Folic Acid (Folic Acid) 1 mg DAILY PO Last administered on 08/02/16 09:08; Start 07/29/16 at 09:00; Stop 08/28/16 at 08:59 Home Med (Med Rec Complete!) ASDIRECTED XX ; Start 07/29/16 at 12:00; Stop at 12:01; Status DC Hydroxyzine HCl (Atarax) 25 mg QID PRN PO ANXIETY/AGITATION Last administered on 07/30/16 09:31; Start 07/29/16 at 18:30; Stop 08/28/16 at 18:29 Leucovorin Calcium (Wellcovorin) 10 mg DAILY PO Last administered on 08/02/16 09:08; Start 07/30/16 at 09:00; Stop 08/29/16 at 08:59 Levothyroxine Sodium (Synthroid) 0.075 mg DAILY@06 PO Last administered on 08:27; Start 07/29/16 at 06:00; Stop 07/29/16 at 18:35; Status DC Levothyroxine Sodium (Synthroid) 0.075 mg DAILY@0600 PO Last administered on 06:12; Start 07/30/16 at 06:00; Stop 08/29/16 at 05:59 Levothyroxine Sodium (Synthroid) 75 mg DAILY@0600 PO ; Start 07/30/16 at 06:00; Stop 07/30/16 at 06:59; Status DC Loratadine (Claritin) 10 mg DAILY PO Last administered on 08/02/16 09:09; Start 07/30/16 at 09:00; Stop 08/29/16 at 08:59 Lorazepam (Ativan) 2 mg ASDIRECTED PRN PO SEE PROTOCOL Last administered on 07/29 19:05; Start 07/29/16 at 18:30; Stop 08/05/16 at 18:29 Magnesium Hydroxide (Milk Of Magnesia) 30 ml DAILYPRN PRN PO CONSTIPATION; Start 07/29/16 at 18:30; Stop 08/28/16 at 18:29 Miscellaneous (Unresolved Patient Own Med Order) SEE LABEL COMMENTS UNRESOLVED XX ; Start 07/29/16 at 00:01; Stop 07/31/16 at 21:28; Status DC Multivitamins (Theragram-M) 1 tab DAILY PO Last administered on 08/02/16 09:09 ; Start 07/29/16 at 09:00; Stop 08/28/16 at 08:59 Omeprazole (PriLOSEC) 20 mg DAILY PO Last administered on 08/02/16 09:09; Start 07/29/16 at 09:00; Stop 08/28/16 at 08:59 Patient Own Medication (Patient'S Own Med) 1 ea DAILY PO Last administered on 09:08; Start 08/01/16 at 09:00; Stop 08/31/16 at 08:59 Patient Own Medication (Patient'S Own Med) Viibryd 40MG PO Daily DAILY PO ; Start 07/31/16 at 09:00; Stop 07/31/16 at 21:28; Status DC Prazosin HCl (Minipress) 4 mg QHS PO Last administered on 08/01/16 21:20; Start 07/29/16 at 21:00; Stop 08/28/16 at 20:59 Pseudoephedrine HCl (Sudafed) 30 mg BIDP PRN PO NASAL CONGESTION Last administered on 07/31/16 20:15; Start 07/31/16 at 14:45; Stop 08/01/16 at 06:00; Status DC Pseudoephedrine HCl (Sudafed) 30 mg BIDP PRN PO NASAL CONGESTION; Start at 09:30; Stop 08/31/16 at 09:29 Quetiapine Fumarate (SEROquel) 50 mg QHS PO Last administered on 08/01/16 21:20 ; Start 07/30/16 at 21:00; Stop 08/29/16 at 20:59 Thiamine HCl (Thiamine HCl) 100 mg BID PO Last administered on 08/01/16 08:26; Start 07/29/16 at 21:00; Stop 08/01/16 at 20:59; Status DC Trazodone HCl (Desyrel) 100 mg QHS PO Last administered on 08/01/16 21:20; Start 07/29/16 at 21:00; Stop 08/28/16 at 20:59 Allergies Coded Allergies: Sulfa Antibiotics (Verified Allergy, Unknown, 02/09/14) Sulfites (Unverified Allergy, Unknown, 02/10/14) Christal Sharp Aug 02, 2016 10:55
[2016-08-02 12:19] VITALS: BP 132/91
[2016-08-02] MEDS: IBUPROFEN 400 MG TAB PO PRN (13:11)
[2016-08-02 18:00] VITALS: BP 127/76
[2016-08-02] MEDS: PRAZOSIN 1 MG CAP PO SCH (22:28)
[2016-08-02] MEDS: QUEtiapine FUMARATE 50 MG TAB PO SCH (22:28)
[2016-08-02] MEDS: traZODone 100 MG TAB PO SCH (22:29)
[2016-08-03] MEDS: LEVOTHYROXINE 0.075 MG TAB (75 MCG) PO SCH (06:06)
[2016-08-03 06:36] VITALS: BP 115/63
[2016-08-03 08:22] LABS: ALBUMIN 3.6 GM/DL (3.2-5.2); ALBUMIN/GLOBULIN RATIO 1.06 (1.00-1.93); ALKALINE PHOSPHATASE 99 U/L (45-117); ALT/SGPT 154 U/L (12-78); ANION GAP 7 MEQ/L (8-16); AST/SGOT 166 U/L (15-37); BILIRUBIN,TOTAL 0.4 MG/DL (0.2-1.0); BLOOD UREA NITROGEN 12 MG/DL (7-18); CALCIUM LEVEL 8.8 MG/DL (8.5-10.1); CARBON DIOXIDE LEVEL 26 MEQ/L (21-32); CHLORIDE LEVEL 108 MEQ/L (98-107); CREATININE FOR GFR 0.71 MG/DL (0.55-1.02); GLOMERULAR FILTRATION RATE > 60.0 (>51); GLUCOSE, FASTING 78 MG/DL (70-105); POTASSIUM SERUM 4.3 MEQ/L (3.5-5.1); SODIUM LEVEL 141 MEQ/L (136-145)
[2016-08-03] MEDS: AZELASTINE 137MCG NASAL SPY 30 ML (ASTELIN) SCH ×2 (09:00→21:45)
[2016-08-03] MEDS: FOLIC ACID 1 MG TAB PO SCH (09:04)
[2016-08-03] MEDS: LEUCOVORIN 5 MG TAB PO SCH (09:04)
[2016-08-03] MEDS: ACAMPROSATE CALCIUM 333 MG TABLET (CAMPRAL) PO SCH ×3 (09:04→21:46)
[2016-08-03] MEDS: FLUTICASONE PROP 0.05% NASAL SPRAY 16 GM (FLONASE) SCH (09:04)
[2016-08-03] MEDS: MULTIVITAMINS/MINERALS THERAP 1 TAB PO SCH (09:04)
[2016-08-03] MEDS: OMEPRAZOLE 20 MG CAP PO SCH (09:04)
[2016-08-03] MEDS: LORATADINE 10 MG TAB PO SCH (09:04)
[2016-08-03 12:00] VITALS: BP 115/83
[2016-08-03] MEDS: IBUPROFEN 400 MG TAB PO PRN (14:30)
--- NOTE | 2016-08-03 16:51 | MHIPNPDOC ---
[facility] Progress Note Progress Note DATE OF SERVICE: 08/03/16 HISTORY: day 6 of admission, pt admitted following SI after becoming intoxicated on Alcohol. VITAL SIGNS: See below. NEW TEST RESULTS: na CURRENT MEDICATIONS: See below. MENTAL STATUS EXAMINATION: Patient is a 55-year old female, who is wearing street clothes, appropriately attired, good eye contact. Speech: Is clear Language skills are good Thought processes including: goal directed Thought content: appropriate Abstract reasoning, and computation: good. Description of associations: good. Description of abnormal or psychotic thoughts: pt is no longer having thoughts or intent to commit suicide, no psychotic symptoms observed. Judgment: limited Insight: fair. Orientation: well oriented Recent and remote memory: intact Attention span and concentration: good Fund of knowledge: full Mood: anxious. Affect: congruent DIAGNOSES: 1. MDD severe, recurrent, without psychotic features 2. alcohol dependence 3. s/p Gastric bypass 4. Hypothyroidism ASSESSMENT:pt requested an additional day of programming and in-patient services to help solidify her recovery goals. she is active in groups and finds them very beneficial. She is social and getting along well with peers. Sleep is improved on higher dose of trazodone. Pt if a bit more in tune with how she presents herself to people and apologized for being pushy. Pt assured that was not necessary and we are here to help her. Pt is eating and drinking well. Compliant with medications. No behavior challenges on the unit. MANAGEMENT PLAN: continue meds and close observation, discharge is planned for tomorrow. TIME SPENT: 15minutes. Vital Signs Vital Signs Date Time Temp Pulse Resp B/P (MAP) Pulse Ox O2 Delivery O2 Flow Rate FiO2 08/03/16 12:00 97.7 63 18 115/83 (94) 07/29/16 17:55 96 Room Air Laboratory Data 24H Labs Laboratory Tests 2 08/03/16 06:58: Anion Gap 7L, Glomerular Filtration Rate > 60.0, Blood Urea Nitrogen 12, Creatinine 0.71, Sodium Level 141, Potassium Level 4.3, Chloride Level 108H, Carbon Dioxide Level 26, Calcium Level 8.8, Aspartate Amino Transf (AST/SGOT) 166H, Alanine Aminotransferase (ALT/SGPT) 154H, Alkaline Phosphatase 99, Total Bilirubin 0.4, Total Protein 7.0, Albumin 3.6, Albumin/Globulin Ratio 1.06 CBC/BMP Laboratory Tests 08/03/16 06:58 Calcium Level 8.8, Aspartate Amino Transf (AST/SGOT) 166 H, Alanine Aminotransferase (ALT/SGPT) 154 H, Alkaline Phosphatase 99, Total Bilirubin 0.4 , Total Protein 7.0, Albumin 3.6 Current Medications Current Medications Acamprosate (Campral) 666 mg TID PO Last administered on 08/03/16 15:53; Start 07/31/16 at 09:00; Stop 08/30/16 at 08:59 Acetaminophen (Tylenol Tab) 650 mg Q6HP PRN PO HEADACHE or DISCOMFORT Last administered on 07/31/16 21:16; Start 07/29/16 at 18:30; Stop 08/01/16 at 09:35; Status DC Al Hydrox/Mg Hydrox/Simethicone (Mylanta) 30 ml Q4HP PRN PO HEARTBURN/ INDIGESTION; Start 07/29/16 at 18:30; Stop 08/28/16 at 18:29 Azelastine HCl (Astelin) 2 spray BID NA Last administered on 08/02/16 20:09; Start 08/01/16 at 09:00; Stop 08/31/16 at 08:59 Fluticasone Propionate (Flonase 0.05% Nasal [place]) 2 spray DAILY NA Last administered on 08/03/16 09:04; Start 08/02/16 at 09:00; Stop 09/01/16 at 08:59 Fluticasone Propionate (Flonase 0.05% Nasal [place]) 2 spray DAILY PRN NA CONGESTION Last administered on 08/01/16 08:28; Start 07/29/16 at 18:30; Stop 08/01/16 at 09:17; Status DC Folic Acid (Folic Acid) 1 mg DAILY PO Last administered on 08/03/16 09:04; Start 07/29/16 at 09:00; Stop 08/28/16 at 08:59 Home Med (Med Rec Complete!) ASDIRECTED XX ; Start 07/29/16 at 12:00; Stop at 12:01; Status DC Hydroxyzine HCl (Atarax) 25 mg QID PRN PO ANXIETY/AGITATION Last administered on 07/30/16 09:31; Start 07/29/16 at 18:30; Stop 08/28/16 at 18:29 Ibuprofen (Advil) 400 mg Q8HP PRN PO PAIN Last administered on 08/03/16 14:30; Start 08/02/16 at 12:30; Stop 09/01/16 at 12:29 Leucovorin Calcium (Wellcovorin) 10 mg DAILY PO Last administered on 08/03/16 09:04; Start 07/30/16 at 09:00; Stop 08/29/16 at 08:59 Levothyroxine Sodium (Synthroid) 0.075 mg DAILY@06 PO Last administered on 08:27; Start 07/29/16 at 06:00; Stop 07/29/16 at 18:35; Status DC Levothyroxine Sodium (Synthroid) 0.075 mg DAILY@0600 PO Last administered on 06:06; Start 07/30/16 at 06:00; Stop 08/03/16 at 15:34; Status DC Levothyroxine Sodium (Synthroid) 75 mcg DAILY@0600 PO ; Start 08/04/16 at 06:00; Stop 09/03/16 at 05:59 Levothyroxine Sodium (Synthroid) 75 mg DAILY@0600 PO ; Start 07/30/16 at 06:00; Stop 07/30/16 at 06:59; Status DC Loratadine (Claritin) 10 mg DAILY PO Last administered on 08/03/16 09:04; Start 07/30/16 at 09:00; Stop 08/29/16 at 08:59 Lorazepam (Ativan) 2 mg ASDIRECTED PRN PO SEE PROTOCOL Last administered on 07/29 19:05; Start 07/29/16 at 18:30; Stop 08/05/16 at 18:29 Magnesium Hydroxide (Milk Of Magnesia) 30 ml DAILYPRN PRN PO CONSTIPATION; Start 07/29/16 at 18:30; Stop 08/28/16 at 18:29 Miscellaneous (Unresolved Patient Own Med Order) SEE LABEL COMMENTS UNRESOLVED XX ; Start 07/29/16 at 00:01; Stop 07/31/16 at 21:28; Status DC Multivitamins (Theragram-M) 1 tab DAILY PO Last administered on 08/03/16 09:04 ; Start 07/29/16 at 09:00; Stop 08/28/16 at 08:59 Omeprazole (PriLOSEC) 20 mg DAILY PO Last administered on 08/03/16 09:04; Start 07/29/16 at 09:00; Stop 08/28/16 at 08:59 Patient Own Medication (Patient'S Own Med) 1 ea DAILY PO Last administered on 09:04; Start 08/01/16 at 09:00; Stop 08/31/16 at 08:59 Patient Own Medication (Patient'S Own Med) Viibryd 40MG PO Daily DAILY PO ; Start 07/31/16 at 09:00; Stop 07/31/16 at 21:28; Status DC Prazosin HCl (Minipress) 4 mg QHS PO Last administered on 08/02/16 22:28; Start 07/29/16 at 21:00; Stop 08/28/16 at 20:59 Pseudoephedrine HCl (Sudafed) 30 mg BIDP PRN PO NASAL CONGESTION Last administered on 07/31/16 20:15; Start 07/31/16 at 14:45; Stop 08/01/16 at 06:00; Status DC Pseudoephedrine HCl (Sudafed) 30 mg BIDP PRN PO NASAL CONGESTION Last administered on 08/03/16 11:42; Start 08/01/16 at 09:30; Stop 08/31/16 at 09:29 Quetiapine Fumarate (SEROquel) 50 mg QHS PO Last administered on 08/02/16 22:28 ; Start 07/30/16 at 21:00; Stop 08/29/16 at 20:59 Thiamine HCl (Thiamine HCl) 100 mg BID PO Last administered on 08/01/16 08:26; Start 07/29/16 at 21:00; Stop 08/01/16 at 20:59; Status DC Trazodone HCl (Desyrel) 100 mg QHS PO Last administered on 08/01/16 21:20; Start 07/29/16 at 21:00; Stop 08/02/16 at 10:52; Status DC Trazodone HCl (Desyrel) 200 mg QHS PO Last administered on 08/02/16 22:29; Start 08/02/16 at 21:00; Stop 09/01/16 at 20:59 Allergies Coded Allergies: Sulfa Antibiotics (Verified Allergy, Unknown, 02/09/14) Sulfites (Unverified Allergy, Unknown, 02/10/14) Christal Sharp Aug 03, 2016 16:51
[2016-08-03 18:31] VITALS: BP 123/72
[2016-08-03] MEDS: QUEtiapine FUMARATE 50 MG TAB PO SCH (21:45)
[2016-08-03] MEDS: traZODone 100 MG TAB PO SCH (21:45)
[2016-08-03 21:47] VITALS: BP 115/74
[2016-08-03] MEDS: PRAZOSIN 1 MG CAP PO SCH (21:47)
[2016-08-04] MEDS ORDERED: LEVOTHYROXINE 75MCG TABLET (0.075MG) PO SCH (06:00)
[2016-08-04 07:17] VITALS: BP 100/57
[2016-08-04 08:21] LABS: ALBUMIN 3.6 GM/DL (3.2-5.2); ALBUMIN/GLOBULIN RATIO 1.09 (1.00-1.93); ALKALINE PHOSPHATASE 98 U/L (45-117); ALT/SGPT 145 U/L (12-78); ANION GAP 5 MEQ/L (8-16); AST/SGOT 136 U/L (15-37); BILIRUBIN,TOTAL 0.3 MG/DL (0.2-1.0); BLOOD UREA NITROGEN 14 MG/DL (7-18); CALCIUM LEVEL 8.6 MG/DL (8.5-10.1); CARBON DIOXIDE LEVEL 28 MEQ/L (21-32); CHLORIDE LEVEL 109 MEQ/L (98-107); CREATININE FOR GFR 0.72 MG/DL (0.55-1.02); GLOMERULAR FILTRATION RATE > 60.0 (>51); GLUCOSE, FASTING 81 MG/DL (70-105); POTASSIUM SERUM 4.4 MEQ/L (3.5-5.1); SODIUM LEVEL 142 MEQ/L (136-145); TOTAL PROTEIN 6.9 GM/DL (6.4-8.2)
[2016-08-04] MEDS: FLUTICASONE PROP 0.05% NASAL SPRAY 16 GM (FLONASE) SCH (08:27)
[2016-08-04] MEDS: LORATADINE 10 MG TAB PO SCH (08:27)
[2016-08-04] MEDS: FOLIC ACID 1 MG TAB PO SCH (08:27)
[2016-08-04] MEDS: MULTIVITAMINS/MINERALS THERAP 1 TAB PO SCH (08:27)
[2016-08-04] MEDS: OMEPRAZOLE 20 MG CAP PO SCH (08:27)
[2016-08-04] MEDS: LEUCOVORIN 5 MG TAB PO SCH (08:27)
[2016-08-04] MEDS: ACAMPROSATE CALCIUM 333 MG TABLET (CAMPRAL) PO SCH (08:30)
[2016-08-04] MEDS: AZELASTINE 137MCG NASAL SPY 30 ML (ASTELIN) SCH (08:35)
[2016-08-04] MEDS ORDERED: ACAM0.05 PO (10:50)
[2016-08-04] MEDS ORDERED: QUET5TAB PO (10:50)
--- NOTE | 2016-08-04 13:50 | MHDSPDOC ---
[facility] Discharge Summary Discharge Summary DATE OF ADMISSION: Jul 29, 2016 at 14:51 DATE OF DISCHARGE: Aug 04, 2016 at 11:00 DISCHARGE DIAGNOSES: 1. MDD severe, recurrent, without psychotic features 2. alcohol dependence 3. s/p Gastric bypass 4. Hypothyroidism REASON FOR ADMISSION:pt was attempting to over use alcohol in a suicide attempt. CONSULTANTS INVOLVED:ultrasound, lab, medicine, psychiatry TREATMENT AND PROGRESS ON THE UNIT : pt began to stabilize rather quickly on the unit. She was very concerned about her sinuses and criticized the staff and hospital for what she perceived as bad care. Needs were addressed and concerns resolved to patient satisfaction. She was upset when medicine ordered an ultrasound of her liver and she did not understand why. Staff worked diligently to answer all her questions and assure her she would informed of all results. HOSPITAL COURSE: pt accepted offer of Campral to help with cravings for alcohol. It seemed to help her and she will be discharged on the medication. She also relies on Seroquel at so this was resumed. very few medication changes made , Emphasis was on sobriety and the importance of remaining abstinent. Pt has an awareness now of on-line help for alcoholism as well as community resources she can access. She agreed to an evaluation at [facility] addiction services. Pt had some sleep issues on the unit but these were also resolved to her satisfaction. Pt attended programming and was actively involved in the groups. This was very therapeutic for her and she asked to remain until the end of the week to complete the group cycles. She states they were of great help to her. Risks and benefits of medications discussed and questions answered. DISCHARGE ASSESSMENT:Pt is aware of the hazards to her liver should she continue to drink. She was informed of the ultrasound results of a fatty liver and advised to follow up with PCP. Liver enzymes are elevated and pt is aware of this. Pt advised to request a copy of her records so her PCP can evaluate them and help her make a plan of care. Also informed of small cyst found on ultrasound. Encouraged to use medications sparingly to help protect the liver but to comply with recommendations. Pt is agreeable to Case management services. She is anxious to return to work and to her apartment. She is optimistic she can remain alcohol free and has done so successfully in the past. She denies the desire to and is willing to face the DSS investigation regarding mother's assets. MENTAL STATUS EXAMINATION ON DISCHARGE: Patient is a 55-year old female, who is dressed in street clothes, cooperative, making good eye contact. Speech is clear Language skills are good Thought processes : linerar Thought content: appropriate Abstract reasoning, and computation: good Description of associations: good Description of abnormal or psychotic thoughts: none Judgment: fair Insight: good Orientation to person, place, time and situation Recent and remote memory: intact Attention span and concentration: good Fund of knowledge: full Mood: euthymic Affect: congruent MEDICATIONS ON DISCHARGE: campral for alcohol cravings seroquel for mood stability. PLAN/FOLLOWUP ARRANGEMENTS: [facility] addiction treatment [place] and [facility] The amount of time spent in the coordination of care for this patient was approximately 30 minutes. Vital Signs/I&Os Vital Signs Date Time Temp Pulse Resp B/P (MAP) Pulse Ox O2 Delivery O2 Flow Rate FiO2 08/04/16 07:17 98.0 58 16 100/57 (71) 07/29/16 17:55 96 Room Air Laboratory Data Labs 24H Laboratory Tests 2 08/04/16 07:24: Anion Gap 5L, Glomerular Filtration Rate > 60.0, Blood Urea Nitrogen 14, Creatinine 0.72, Sodium Level 142, Potassium Level 4.4, Chloride Level 109H, Carbon Dioxide Level 28, Calcium Level 8.6, Aspartate Amino Transf (AST/SGOT) 136H, Alanine Aminotransferase (ALT/SGPT) 145H, Alkaline Phosphatase 98, Total Bilirubin 0.3, Total Protein 6.9, Albumin 3.6, Albumin/Globulin Ratio 1.09 CBC/BMP Laboratory Tests 08/04/16 07:24 Calcium Level 8.6, Aspartate Amino Transf (AST/SGOT) 136 H, Alanine Aminotransferase (ALT/SGPT) 145 H, Alkaline Phosphatase 98, Total Bilirubin 0.3 , Total Protein 6.9, Albumin 3.6 Medications Scheduled (Viibryd) 40 Mg Tab, 40 MG PO DAILY, (Reported) Acamprosate Calcium (Acamprosate Calcium Dr) 333 Mg Tab, 666 MG PO TID for SEE LABEL COMMENTS for 7 Days, #21 Leucovorin Calcium (Leucovorin Calcium) 10 Mg Tab, 10 MG PO DAILY, (Reported) Levothyroxine Sodium (Synthroid) 75 Mcg Tab, 75 MCG PO DAILY, (Reported) Loratadine (Loratadine Allergy Relief) 10 Mg Tab, 10 MG PO DAILY, (Reported) Omeprazole (Omeprazole) 20 Mg Cap, 20 MG PO DAILY, (Reported) Prazosin Hcl (Prazosin HCl) 2 Mg Cap, 4 MG PO QHS for night terrors, (Reported) Quetiapine Fumerate (Quetiapine Fumarate) 50 Mg Tab, 50 MG PO QHS for MOOD for 7 Days, #7 Scheduled PRN Fluticasone Propionate (Fluticasone Propionate 0.05%) 120 [place]/16 Gm Naspr, 2 SPRAY NA DAILY PRN for CONGESTION, (Reported) PER NOSTRIL Hydroxyzine Pamoate (Hydroxyzine Pamoate) 25 Mg Cap, 25 MG PO QID PRN for ANXIETY/AGITATION, (Reported) Allergies Coded Allergies: Sulfa Antibiotics (Verified Allergy, Unknown, 02/09/14) Sulfites (Unverified Allergy, Unknown, 02/10/14) Christal Sharp Aug 04, 2016 13:50
== END 2016-08-04 11:00 | disposition home or self-care (01) | DRG 751 ==
LOC: M ED 17:51 → M ED INP 07-29 14:51 → M PSY 07-29 16:39
PROVIDERS: ADMIT Psychiatry & Neurology Psychiatry; ATTEND Psychiatry & Neurology Psychiatry
DX: F33.2 Major depressive disorder, recurrent severe without psychotic features (principal); E03.9 Hypothyroidism, unspecified; R79.89 Other specified abnormal findings of blood chemistry; J30.9 Allergic rhinitis, unspecified; F10.20 Alcohol dependence, uncomplicated; Z79.899 Other long term (current) drug therapy; Z88.2 Allergy status to sulfonamides; Z98.84 Bariatric surgery status

== ENCOUNTER → 2016-08-17 | Outpatient (REF) | payer MEDICAID, OTHER ==
[~2016-08-17] MED LIST changes: +ACAM0.05 PO; +FLUT1SPR2; +HYDR1CAP25 PO; +LEUC10TA PO; +LEVO75TA4 PO; +LORATAB PO; +OMEP20CA3 PO; +PRAZ2CAP PO; +QUET5TAB PO; +TRAZ100T4 PO; +TYLE325T5 PO; +VIIB40TA PO
[2016-08-17 17:37] LABS: ALBUMIN 3.6 GM/DL (3.2-5.2); ALBUMIN/GLOBULIN RATIO 1.06 (1.00-1.93); ALKALINE PHOSPHATASE 78 U/L (45-117); ALT/SGPT 31 U/L (12-78); AST/SGOT 21 U/L (15-37); BILIRUBIN,DIRECT < 0.1 MG/DL (0.0-0.2); BILIRUBIN,TOTAL 0.2 MG/DL (0.2-1.0); FREE T4 1.21 NG/DL (0.76-1.46); GAMMA GLUTAMYLTRANSPEPTIDASE 51 U/L (5-55)
== END ==
LOC: M SFHCCLAY 13:20
PROVIDERS: ATTEND Family Medicine
DX: K75.9 Inflammatory liver disease, unspecified (principal); E03.9 Hypothyroidism, unspecified

== ENCOUNTER → 2017-06-11 | Outpatient (REF) | payer OTHER ==
[2017-06-11 11:35] LABS: HEMATOCRIT 34.6 % (36.0-47.0); HEMOGLOBIN 10.9 g/dl (12.0-15.5); MEAN CORPUSCULAR HEMOGLOBIN 25.4 pg (27.0-33.0); MEAN CORPUSCULAR HGB CONC 31.5 g/dl (32.0-36.5); MEAN CORPUSCULAR VOLUME 80.7 fl (80.0-96.0); PLATELET COUNT, AUTOMATED 387 10^3/uL (150-450); RED BLOOD COUNT 4.29 10^6/uL (4.00-5.40); RED CELL DISTRIBUTION WIDTH 15.6 % (11.5-14.5); WHITE BLOOD COUNT 5.4 10^3/uL (4.0-10.0)
[2017-06-11 12:13] LABS: IRON (FE) 39 UG/DL (50-170)
[2017-06-11 12:15] LABS: PTH INTACT 99.4 PG/ML (18.5-88.0)
== END ==
LOC: M SFHCCLAY 09:26
DX: Z98.84 Bariatric surgery status (principal)

== ENCOUNTER → 2017-06-14 | Outpatient (REF) | payer OTHER ==
[2017-06-15 12:14] LABS: FREE T4 0.96 NG/DL (0.76-1.46)
== END ==
LOC: M SFHCCLAY 15:40
DX: E03.9 Hypothyroidism, unspecified (principal)

== ENCOUNTER → 2017-08-24 | Outpatient (REF) | payer OTHER ==
[2017-08-24 11:56] LABS: HEMATOCRIT 33.4 % (36.0-47.0); HEMOGLOBIN 10.5 g/dl (12.0-15.5); MEAN CORPUSCULAR HEMOGLOBIN 25.3 pg (27.0-33.0); MEAN CORPUSCULAR HGB CONC 31.4 g/dl (32.0-36.5); MEAN CORPUSCULAR VOLUME 80.5 fl (80.0-96.0); PLATELET COUNT, AUTOMATED 319 10^3/uL (150-450); RED BLOOD COUNT 4.15 10^6/uL (4.00-5.40); RED CELL DISTRIBUTION WIDTH 15.6 % (11.5-14.5); WHITE BLOOD COUNT 3.8 10^3/uL (4.0-10.0)
[2017-08-24 12:32] LABS: IRON (FE) 26 UG/DL (50-170); TOTAL IRON BINDING CAPACITY 431 UG/DL (250-450)
== END ==
LOC: M SFHCCLAY 11:46
DX: D50.9 Iron deficiency anemia, unspecified (principal); E03.9 Hypothyroidism, unspecified
CPT/HCPCS: 83550

== ENCOUNTER 2017-09-10 06:55 | Outpatient (CLI) | payer OTHER ==
[2017-09-10] MEDS: IRON SUCROSE 500 MG in NS 250 ML IV (07:46)
== END 2017-09-10 13:25 | disposition home or self-care (01) ==
LOC: M INFU 06:55
DX: D50.9 Iron deficiency anemia, unspecified (principal); Z98.84 Bariatric surgery status; Z88.2 Allergy status to sulfonamides; Z79.899 Other long term (current) drug therapy
CPT/HCPCS: J1756

== ENCOUNTER 2017-09-27 06:55 | Outpatient (CLI) | payer OTHER ==
[2017-09-27] MEDS: IRON SUCROSE 500 MG in NS 250 ML IV (07:36)
== END 2017-09-27 12:30 | disposition home or self-care (01) ==
LOC: M INFU 06:55
DX: D50.9 Iron deficiency anemia, unspecified (principal); Z98.84 Bariatric surgery status; Z79.899 Other long term (current) drug therapy; Z88.2 Allergy status to sulfonamides
CPT/HCPCS: J1756

== ENCOUNTER → 2017-10-03 | Outpatient (REF) | payer OTHER ==
[2017-10-03 11:53] LABS: HEMATOCRIT 35.9 % (36.0-47.0); HEMOGLOBIN 11.5 g/dl (12.0-15.5); MEAN CORPUSCULAR HEMOGLOBIN 26.5 pg (27.0-33.0); MEAN CORPUSCULAR VOLUME 82.7 fl (80.0-96.0); PLATELET COUNT, AUTOMATED 273 10^3/uL (150-450); RED BLOOD COUNT 4.34 10^6/uL (4.00-5.40); RED CELL DISTRIBUTION WIDTH 18.8 % (11.5-14.5); WHITE BLOOD COUNT 4.4 10^3/uL (4.0-10.0)
[2017-10-03 12:28] LABS: FREE T4 1.15 NG/DL (0.76-1.46); IRON (FE) 95 UG/DL (50-170); PERCENT SATURATION 29.8 % (13.2-45.0); THYROID STIMULATING HORMONE 0.798 uIU/ML (0.358-3.740); TOTAL IRON BINDING CAPACITY 319 UG/DL (250-450)
== END ==
LOC: M SFHCCLAY 07:57
DX: D50.9 Iron deficiency anemia, unspecified (principal); E03.9 Hypothyroidism, unspecified
CPT/HCPCS: 83550

== ENCOUNTER 2017-11-26 07:00 | Day surgery (SDC) | payer OTHER ==
[~2017-11-26 07:00] MED LIST changes: -ACAM0.05 PO; -CALC500T36 PO; -CLAR1TAB2 PO; -CYAN25TA PO; -EFFE75CA75 PO; -FLON0.054; -FLUT11IN INH; -FLUT1SPR2; -HYDR1CAP25 PO; -LEUC10TA PO; -LEVO75TA4 PO; -LORATAB PO; -MULT1TAB8 PO; -MULTCAP PO; +NS 1,000 ML IV; -OMEP20CA3 PO; -PRAZ2CAP PO; -PRIL40CA PO; -QUET5TAB PO; -TRAZ100T4 PO; -TRAZ50TA4 PO; -TYLE325T5 PO; -VIIB40TA PO; -VIST25CA PO; -VITA250L PO
[2017-11-26] MEDS ORDERED: PROPOFOL 200 MG/20 ML VIAL As Ordered ×2 (07:16→08:34)
[2017-11-26] MEDS ORDERED: LIDOCAINE 2% INJ 100 MG/5 ML SDV (FOR ANES.) As Ordered (07:16)
== END 2017-11-26 09:35 | disposition home or self-care (01) ==
LOC: M OPP 07:00
DX: K64.8 Other hemorrhoids (principal); D50.9 Iron deficiency anemia, unspecified; K22.8 Other specified diseases of esophagus; K21.0 Gastro-esophageal reflux disease with esophagitis; K44.9 Diaphragmatic hernia without obstruction or gangrene; Z98.0 Intestinal bypass and anastomosis status; K92.0 Hematemesis; E03.9 Hypothyroidism, unspecified; F32.9 Major depressive disorder, single episode, unspecified; F41.9 Anxiety disorder, unspecified; N32.9 Bladder disorder, unspecified; Z79.899 Other long term (current) drug therapy; Z88.2 Allergy status to sulfonamides; Z88.5 Allergy status to narcotic agent; Z83.3 Family history of diabetes mellitus; Z82.49 Family history of ischemic heart disease and other diseases of the circulatory system
CPT/HCPCS: 45380

== ENCOUNTER → 2018-01-08 | Outpatient (REF) | payer OTHER ==
[2018-01-08 12:15] LABS: HEMATOCRIT 39.1 % (36.0-47.0); HEMOGLOBIN 13.1 g/dl (12.0-15.5); MEAN CORPUSCULAR HEMOGLOBIN 30.2 pg (27.0-33.0); MEAN CORPUSCULAR HGB CONC 33.5 g/dl (32.0-36.5); MEAN CORPUSCULAR VOLUME 90.1 fl (80.0-96.0); PLATELET COUNT, AUTOMATED 290 10^3/uL (150-450); RED BLOOD COUNT 4.34 10^6/uL (4.00-5.40); RED CELL DISTRIBUTION WIDTH 12.9 % (11.5-14.5)
[2018-01-08 12:37] LABS: IRON (FE) 105 UG/DL (50-170)
[2018-01-08 12:44] LABS: ALBUMIN 3.8 GM/DL (3.2-5.2); ALBUMIN/GLOBULIN RATIO 1.23 (1.00-1.93); ALKALINE PHOSPHATASE 93 U/L (45-117); ALT/SGPT 35 U/L (12-78); ANION GAP 7 MEQ/L (8-16); AST/SGOT 24 U/L (7-37); BILIRUBIN,TOTAL 0.3 MG/DL (0.2-1.0); BLOOD UREA NITROGEN 9 MG/DL (7-18); CALCIUM LEVEL 9.2 MG/DL (8.5-10.1); CARBON DIOXIDE LEVEL 29 MEQ/L (21-32); CARCINOEMBRYONIC ANTIGEN < 0.5 NG/ML (<2.5); CHLORIDE LEVEL 100 MEQ/L (98-107); CREATININE FOR GFR 0.85 MG/DL (0.55-1.30); GLOMERULAR FILTRATION RATE > 60.0 (>51); GLUCOSE, FASTING 87 MG/DL (70-100); POTASSIUM SERUM 5.3 MEQ/L (3.5-5.1); SODIUM LEVEL 136 MEQ/L (136-145); TOTAL PROTEIN 6.9 GM/DL (6.4-8.2)
== END ==
LOC: M SFHCCLAY 09:14
DX: R14.0 Abdominal distension (gaseous) (principal); R63.5 Abnormal weight gain; K52.9 Noninfective gastroenteritis and colitis, unspecified; K76.0 Fatty (change of) liver, not elsewhere classified

== ENCOUNTER → 2018-10-30 | Outpatient (REF) | payer OTHER ==
[~2018-10-30] MED LIST changes: +ACAM0.05 PO; +B121000T PO; +BIOT1TAB PO; +CALC500T61 PO; +CHLO4TAB PO; +CLAR1TAB2 PO; +EFFE75CA2 PO; +FLON0.054; +FLUT11IN INH; +FLUT1SPR2; +FLUTISP; +HYDR100C PO; +HYDR1CAP25 PO; +LEUC10TA PO; +LEVO75TA4 PO; +LEVO88TA3 PO; +LORA-243 PO; +LORATAB PO; +MULT1TAB8 PO; +MULTCAP PO; -NS 1,000 ML IV; +OMEP1CAP73 PO; +PRAZ2CAP PO; +PRIL40CA PO; +PROM25TA12 PO; +QUET5TAB PO; +TRAZ-252 PO; +TRAZ-257 PO; +TYLE325T5 PO; +VIIB40TA PO; +VIST25CA PO; +VITA100067 PO; +VITA250L PO; +VITA250T50 PO
[2018-10-30 17:28] LABS: FREE T4 1.13 NG/DL (0.76-1.46); PERCENT SATURATION 37.4 % (13.2-45.0); THYROID STIMULATING HORMONE 0.918 uIU/ML (0.358-3.740)
== END ==
LOC: M SFHCCLAY 13:48
PROVIDERS: ATTEND Family Medicine
DX: D50.9 Iron deficiency anemia, unspecified (principal); E03.9 Hypothyroidism, unspecified

== ENCOUNTER → 2019-06-19 | Outpatient (REF) | payer OTHER ==
[2019-06-19 16:19] LABS: BASO # 0.1 10^3/uL (0.0-0.2); BASO % 1.2 % (0.0-1.0); EOS # 0.1 10^3/uL (0.0-0.5); EOS % 3.5 % (0.0-3.0); HEMATOCRIT 42.9 % (36.0-47.0); LYMPH # 1.4 10^3/uL (1.5-5.0); LYMPH % 35.5 % (24.0-44.0); MEAN CORPUSCULAR HEMOGLOBIN 30.2 pg (27.0-33.0); MEAN CORPUSCULAR HGB CONC 32.6 g/dl (32.0-36.5); MEAN CORPUSCULAR VOLUME 92.5 fl (80.0-96.0); MONO # 0.6 10^3/uL (0.0-0.8); MONO % 13.9 % (0.0-5.0); NEUTROPHILS # 1.9 10^3/uL (1.5-8.5); NEUTROPHILS % 45.9 % (36.0-66.0); PLATELET COUNT, AUTOMATED 307 10^3/uL (150-450); RED BLOOD COUNT 4.64 10^6/uL (4.00-5.40)
[2019-06-19 16:34] LABS: ALBUMIN 4.2 GM/DL (3.2-5.2); ALT/SGPT 92 U/L (12-78); BILIRUBIN,TOTAL 0.6 MG/DL (0.2-1.0); BLOOD UREA NITROGEN 16 MG/DL (7-18); CALCIUM LEVEL 9.7 MG/DL (8.5-10.1); CARBON DIOXIDE LEVEL 27 MEQ/L (21-32); CHLORIDE LEVEL 103 MEQ/L (98-107); CHOLESTEROL LEVEL 211 MG/DL (<200); CHOLESTEROL RISK RATIO 2.089 (<5); CREATININE FOR GFR 0.77 MG/DL (0.55-1.30); FREE T4 1.09 NG/DL (0.76-1.46); GLOMERULAR FILTRATION RATE > 60.0 (>51); GLUCOSE, FASTING 96 MG/DL (70-100); HDL CHOLESTEROL 101 MG/DL (>40); LDL CHOLESTEROL 93 MG/DL (<100); NON-HDL-C 110 MG/DL; POTASSIUM SERUM 4.4 MEQ/L (3.5-5.1); SODIUM LEVEL 137 MEQ/L (136-145); TRIGLYCERIDES LEVEL 85 MG/DL (<150)
[2019-06-20 11:42] LABS: HEPATITIS C VIRUS ABY INDEX 0.1 INDEX (<0.8)
== END ==
LOC: M SFHCCLAY 07:19
PROVIDERS: ATTEND Family Medicine
DX: E03.9 Hypothyroidism, unspecified (principal); J30.9 Allergic rhinitis, unspecified; E78.00 Pure hypercholesterolemia, unspecified; D50.9 Iron deficiency anemia, unspecified

== ENCOUNTER → 2019-11-17 | Outpatient (REF) | payer OTHER ==
[2019-11-18 12:54] LABS: BASO % 0.5 % (0.0-1.0); EOS % 0.5 % (0.0-3.0); HEMATOCRIT 40.9 % (36.0-47.0); LYMPH # 0.9 10^3/uL (1.5-5.0); LYMPH % 14.8 % (24.0-44.0); MEAN CORPUSCULAR HEMOGLOBIN 30.7 pg (27.0-33.0); MEAN CORPUSCULAR HGB CONC 34.2 g/dl (32.0-36.5); MEAN CORPUSCULAR VOLUME 89.7 fl (80.0-96.0); MONO # 0.5 10^3/uL (0.0-0.8); MONO % 8.6 % (0.0-5.0); NEUTROPHILS # 4.5 10^3/uL (1.5-8.5); NEUTROPHILS % 75.4 % (36.0-66.0); PLATELET COUNT, AUTOMATED 343 10^3/uL (150-450); RED BLOOD COUNT 4.56 10^6/uL (4.00-5.40)
[2019-11-18 13:02] LABS: BLOOD UREA NITROGEN 13 MG/DL (7-18); CALCIUM LEVEL 9.5 MG/DL (8.5-10.1); CARBON DIOXIDE LEVEL 26 MEQ/L (21-32); CHLORIDE LEVEL 87 MEQ/L (98-107); CREATININE FOR GFR 0.68 MG/DL (0.55-1.30); GLOMERULAR FILTRATION RATE > 60.0 (>51); GLUCOSE, FASTING 87 MG/DL (70-100); POTASSIUM SERUM 3.9 MEQ/L (3.5-5.1); SODIUM LEVEL 122 MEQ/L (136-145)
[2019-11-18 13:03] LABS: ALBUMIN 4.4 GM/DL (3.2-5.2); ALT/SGPT 73 U/L (12-78); BILIRUBIN,TOTAL 0.4 MG/DL (0.2-1.0); TOTAL PROTEIN 8.1 GM/DL (6.4-8.2)
[2019-11-18 13:14] LABS: ERYTHROCYTE SEDIMENTATION RATE 5 mm/hr (0-30)
== END ==
LOC: M SFHCCLAY 11:05
PROVIDERS: ATTEND Physician Assistant
DX: Z00.00 Encounter for general adult medical examination without abnormal findings (principal)

== ENCOUNTER → 2019-12-03 | Outpatient (REF) | payer OTHER ==
[2019-12-03 17:06] LABS: ALBUMIN 4.3 GM/DL (3.2-5.2); ALT/SGPT 68 U/L (12-78); BILIRUBIN,TOTAL 0.5 MG/DL (0.2-1.0); BLOOD UREA NITROGEN 6 MG/DL (7-18); CALCIUM LEVEL 9.4 MG/DL (8.5-10.1); CARBON DIOXIDE LEVEL 26 MEQ/L (21-32); CHLORIDE LEVEL 99 MEQ/L (98-107); CHOLESTEROL LEVEL 241 MG/DL (<200); CHOLESTEROL RISK RATIO 1.943 (<5); CREATININE FOR GFR 0.76 MG/DL (0.55-1.30); GLOMERULAR FILTRATION RATE > 60.0 (>51); GLUCOSE, FASTING 80 MG/DL (70-100); HDL CHOLESTEROL 124 MG/DL (>40); LDL CHOLESTEROL 102 MG/DL (<100); NON-HDL-C 117 MG/DL; POTASSIUM SERUM 4.5 MEQ/L (3.5-5.1); SODIUM LEVEL 134 MEQ/L (136-145); TOTAL PROTEIN 7.8 GM/DL (6.4-8.2); TRIGLYCERIDES LEVEL 77 MG/DL (<150)
[2019-12-03 17:14] LABS: PTH INTACT 96.8 PG/ML (18.5-88.0); TOTAL 25(OH) VITAMIN D 34.1 NG/ML (30.0-100.0); VITAMIN B12 LEVEL 921 PG/ML (247-911)
[2019-12-03 17:15] LABS: FOLATE 5.9 NG/ML (>5.4)
== END ==
LOC: M SFHCCLAY 10:24
PROVIDERS: ATTEND Family Medicine
DX: Z98.84 Bariatric surgery status (principal); N25.81 Secondary hyperparathyroidism of renal origin; E87.1 Hypo-osmolality and hyponatremia

== ENCOUNTER → 2019-12-17 | Outpatient (REF) | payer OTHER | LOC: M LAB REF 17:47 | PROVIDERS: ATTEND Dermatology | DX: D49.2 Neoplasm of unspecified behavior of bone, soft tissue, and skin (principal) ==

== ENCOUNTER → 2020-05-04 | Outpatient (REF) | payer OTHER ==
[~2020-05-04] MED LIST changes: +QUET50TA3 PO; -QUET5TAB PO; -VITA250T50 PO; +VITA250T7 PO
[2020-05-04 16:06] LABS: HEMOGLOBIN 13.2 g/dl (12.0-15.5); MEAN CORPUSCULAR HEMOGLOBIN 31.2 pg (27.0-33.0); MEAN CORPUSCULAR HGB CONC 33.8 g/dl (32.0-36.5); MEAN CORPUSCULAR VOLUME 92.2 fl (80.0-96.0); PLATELET COUNT, AUTOMATED 282 10^3/uL (150-450); RED BLOOD COUNT 4.23 10^6/uL (4.00-5.40)
[2020-05-04 16:44] LABS: ALBUMIN 4.1 GM/DL (3.2-5.2); ALT/SGPT 168 U/L (12-78); BILIRUBIN,TOTAL 0.3 MG/DL (0.2-1.0); BLOOD UREA NITROGEN 8 MG/DL (7-18); CARBON DIOXIDE LEVEL 28 MEQ/L (21-32); CHLORIDE LEVEL 94 MEQ/L (98-107); CREATININE FOR GFR 0.81 MG/DL (0.55-1.30); FREE T3 2.4 PG/ML (2.2-4.0); FREE T4 1.12 NG/DL (0.76-1.46); GLOMERULAR FILTRATION RATE > 60.0 (>51); GLUCOSE, FASTING 89 MG/DL (70-100); IRON (FE) 77 UG/DL (50-170); PERCENT SATURATION 23.8 % (13.2-45.0); POTASSIUM SERUM 4.3 MEQ/L (3.5-5.1); SODIUM LEVEL 131 MEQ/L (136-145); THYROID STIMULATING HORMONE 0.121 uIU/ML (0.358-3.740); TOTAL IRON BINDING CAPACITY 324 UG/DL (250-450); TOTAL PROTEIN 7.6 GM/DL (6.4-8.2)
== END ==
LOC: M SFHCCLAY 14:06
PROVIDERS: ATTEND Family Medicine
DX: R53.83 Other fatigue (principal); Z98.84 Bariatric surgery status; F32.9 Major depressive disorder, single episode, unspecified

== ENCOUNTER → 2020-07-28 | Outpatient (REF) | payer OTHER ==
[2020-07-28 12:37] LABS: ALBUMIN 3.9 GM/DL (3.2-5.2); ALT/SGPT 141 U/L (12-78); BILIRUBIN,DIRECT 0.2 MG/DL (0.0-0.2); BILIRUBIN,TOTAL 0.4 MG/DL (0.2-1.0); BLOOD UREA NITROGEN 8 MG/DL (7-18); CALCIUM LEVEL 8.9 MG/DL (8.5-10.1); CARBON DIOXIDE LEVEL 28 MEQ/L (21-32); CHLORIDE LEVEL 95 MEQ/L (98-107); CREATININE FOR GFR 0.56 MG/DL (0.55-1.30); FREE T4 1.02 NG/DL (0.76-1.46); GLOMERULAR FILTRATION RATE > 60.0 (>51); GLUCOSE, FASTING 58 MG/DL (70-100); POTASSIUM SERUM 3.8 MEQ/L (3.5-5.1); SODIUM LEVEL 131 MEQ/L (136-145); THYROID STIMULATING HORMONE 0.218 uIU/ML (0.358-3.740); TOTAL PROTEIN 7.2 GM/DL (6.4-8.2)
== END ==
LOC: M SFHCCLAY 09:58
PROVIDERS: ATTEND Family Medicine
DX: R74.01 Elevation of levels of liver transaminase levels (principal); E87.1 Hypo-osmolality and hyponatremia

== ENCOUNTER → 2020-12-23 | Outpatient (REF) | payer OTHER ==
[~2020-12-23] MED LIST changes: -QUET50TA3 PO; +QUET50TA4 PO
[2020-12-23 16:54] LABS: ALBUMIN 4.1 GM/DL (3.2-5.2); ALT/SGPT 42 U/L (12-78); BILIRUBIN,TOTAL 0.3 MG/DL (0.2-1.0); BLOOD UREA NITROGEN 5 MG/DL (7-18); CALCIUM LEVEL 9.6 MG/DL (8.5-10.1); CARBON DIOXIDE LEVEL 29 MEQ/L (21-32); CHLORIDE LEVEL 98 MEQ/L (98-107); CREATININE FOR GFR 0.68 MG/DL (0.55-1.30); FREE T4 1.13 NG/DL (0.76-1.46); GLOMERULAR FILTRATION RATE > 60.0 (>51); GLUCOSE, FASTING 82 MG/DL (70-100); POTASSIUM SERUM 4.6 MEQ/L (3.5-5.1); SODIUM LEVEL 132 MEQ/L (136-145); THYROID STIMULATING HORMONE 0.233 uIU/ML (0.358-3.740); TOTAL PROTEIN 7.6 GM/DL (6.4-8.2)
== END ==
LOC: M SFHCCLAY 13:06
PROVIDERS: ATTEND Family Medicine
DX: E03.9 Hypothyroidism, unspecified (principal); K76.0 Fatty (change of) liver, not elsewhere classified

== ENCOUNTER → 2021-01-05 | Outpatient (CLI) | payer OTHER ==
[~2021-01-05] MED LIST changes: +PANT20TA6 PO
== END ==
LOC: M LABSMTC 11:37
PROVIDERS: ATTEND Anesthesiology
DX: Z01.818 Encounter for other preprocedural examination (principal); Z11.52 Encounter for screening for COVID-19

== ENCOUNTER → 2021-03-02 | Outpatient (CLI) | payer OTHER ==
[~2021-03-02] MED LIST changes: +B-12100021 PO; +D 101000 PO; +DOXY100T PO; +IRON65TA2 PO; +MONT10TA10 PO
== END ==
LOC: M LABSMTC 12:07
PROVIDERS: ATTEND Anesthesiology
DX: Z01.818 Encounter for other preprocedural examination (principal); Z11.52 Encounter for screening for COVID-19

== ENCOUNTER 2021-03-07 10:52 | Day surgery (SDC) | payer OTHER ==
[~2021-03-07] VITALS: Ht 160 cm; Wt 73.9 kg
[~2021-03-07 10:52] MED LIST changes: -MONT10TA10 PO; +MONT10TA97 PO; +NS 1,000 ML IV ONE
[2021-03-07] MEDS ORDERED: LIDOCAINE 2% 100MG/5ML SDV (FOR ANES.) As Ordered ONE (12:18)
[2021-03-07] MEDS ORDERED: propofoL 200 MG/20 ML VIAL As Ordered ONE ×2 (12:18→12:33)
[2021-03-07] MEDS ORDERED: GLYCOPYRROLATE INJ 0.2 MG/ML 2 ML VIAL As Ordered ONE (12:18)
[2021-03-07 13:18] VITALS: BP 126/83
== END 2021-03-07 13:20 | disposition home or self-care (01) ==
LOC: M OPP 10:52
PROVIDERS: ATTEND Internal Medicine Gastroenterology
DX: Z98.0 Intestinal bypass and anastomosis status (principal); R12 Heartburn; R11.2 Nausea with vomiting, unspecified; Z79.899 Other long term (current) drug therapy; Z88.2 Allergy status to sulfonamides; Z88.5 Allergy status to narcotic agent; Z87.891 Personal history of nicotine dependence

== ENCOUNTER → 2021-04-04 | Outpatient (REF) | payer OTHER ==
[~2021-04-04] MED LIST changes: -NS 1,000 ML IV ONE
[2021-04-04 16:38] LABS: BASO # 0.1 10^3/uL (0.0-0.2); BASO % 2.2 % (0.0-1.0); EOS # 0.2 10^3/uL (0.0-0.5); EOS % 4.1 % (0.0-3.0); HEMATOCRIT 36.4 % (36.0-47.0); HEMOGLOBIN 11.7 g/dl (12.0-15.5); LYMPH # 1.4 10^3/uL (1.5-5.0); LYMPH % 30.9 % (24.0-44.0); MEAN CORPUSCULAR HEMOGLOBIN 30.2 pg (27.0-33.0); MEAN CORPUSCULAR HGB CONC 32.1 g/dl (32.0-36.5); MEAN CORPUSCULAR VOLUME 93.8 fl (80.0-96.0); MONO # 0.6 10^3/uL (0.0-0.8); MONO % 12.6 % (2.0-8.0); NEUTROPHILS # 2.3 10^3/uL (1.5-8.5); PLATELET COUNT, AUTOMATED 459 10^3/uL (150-450); RED BLOOD COUNT 3.88 10^6/uL (4.00-5.40); WHITE BLOOD COUNT 4.6 10^3/uL (4.0-10.0)
[2021-04-04 17:02] LABS: ERYTHROCYTE SEDIMENTATION RATE 18 mm/hr (0-30)
[2021-04-04 17:14] LABS: ALBUMIN 3.7 GM/DL (3.2-5.2); ALT/SGPT 42 U/L (12-78); BILIRUBIN,TOTAL 0.2 MG/DL (0.2-1.0); BLOOD UREA NITROGEN 14 MG/DL (7-18); CARBON DIOXIDE LEVEL 26 MEQ/L (21-32); CHLORIDE LEVEL 104 MEQ/L (98-107); CREATININE FOR GFR 0.65 MG/DL (0.55-1.30); FREE T4 1.01 NG/DL (0.76-1.46); GLOMERULAR FILTRATION RATE > 60.0 (>51); GLUCOSE, FASTING 93 MG/DL (70-100); POTASSIUM SERUM 4.7 MEQ/L (3.5-5.1); SODIUM LEVEL 137 MEQ/L (136-145); TOTAL PROTEIN 7.1 GM/DL (6.4-8.2)
[2021-04-05 11:08] LABS: ALBUMIN % 59.1 % (55.8-66.1); ALPHA-1-GLOBULIN % 4.4 % (2.9-4.9); ALPHA-1-GLOBULINS 0.31 GM/DL (0.17-0.41); ALPHA-2-GLOBULINS 0.75 GM/DL (0.42-0.99); ALPHA-2-GLOBULINS % 10.6 % (7.1-11.8); BETA-1-GLOBULINS 0.43 GM/DL (0.28-0.60); BETA-2-GLOBULINS 0.38 GM/DL (0.19-0.55); BETA-2-GLOBULINS % 5.4 % (3.2-6.5); GAMMA GLOBULIN % 14.5 % (11.1-18.8); GAMMA GLOBULINS 1.03 GM/DL (0.65-1.58)
== END ==
LOC: M SFHCCLAY 13:19
PROVIDERS: ATTEND Family Medicine
DX: I77.6 Arteritis, unspecified (principal); R55 Syncope and collapse; F32.4 Major depressive disorder, single episode, in partial remission; E03.9 Hypothyroidism, unspecified

== ENCOUNTER → 2021-05-16 | Outpatient (REF) | payer OTHER | LOC: M SFHCCLAY 15:47 | PROVIDERS: ATTEND Family Medicine | DX: B35.1 Tinea unguium (principal) ==

== ENCOUNTER → 2022-01-25 | Outpatient (REF) | payer OTHER ==
[2022-01-25 17:45] LABS: HEMATOCRIT 35.3 % (36.0-47.0); HEMOGLOBIN 11.8 g/dl (12.0-15.5); MEAN CORPUSCULAR HEMOGLOBIN 31.3 pg (27.0-33.0); MEAN CORPUSCULAR HGB CONC 33.4 g/dl (32.0-36.5); MEAN CORPUSCULAR VOLUME 93.6 fl (80.0-96.0); PLATELET COUNT, AUTOMATED 196 10^3/uL (150-450); RED BLOOD COUNT 3.77 10^6/uL (4.00-5.40); WHITE BLOOD COUNT 3.3 10^3/uL (4.0-10.0)
[2022-01-25 20:33] LABS: FREE T4 1.18 NG/DL (0.89-1.76); THYROID STIMULATING HORMONE 1.237 uIU/ML (0.55-4.78)
[2022-01-25 20:39] LABS: ALBUMIN 3.6 G/DL (3.2-5.2); ALKALINE PHOSPHATASE 71 U/L (46-116); ALT/SGPT 44 U/L (7.0-40); AST/SGOT 56 U/L (<34); BILIRUBIN,TOTAL 0.5 MG/DL (0.3-1.2); BLOOD UREA NITROGEN 16 MG/DL (9-23); CALCIUM LEVEL 9.2 MG/DL (8.3-10.6); CARBON DIOXIDE LEVEL 26 MMOL/L (20-31); CHLORIDE LEVEL 99 MMOL/L (98-107); CREATININE FOR GFR 0.62 MG/DL (0.55-1.30); GLOMERULAR FILTRATION RATE > 60.0 (>45); GLUCOSE, FASTING 94 MG/DL (74-106); POTASSIUM SERUM 4.4 MMOL/L (3.5-5.1); SODIUM LEVEL 134 MMOL/L (136-145); TOTAL PROTEIN 6.4 G/DL (5.7-8.2)
[2022-01-26 12:42] LABS: HEPATITIS B SURFACE ANTIBODY NEGATIVE (POSITIVE)
[2022-01-26 12:54] LABS: HEPATITIS B SURFACE ANTIGEN NEGATIVE (NEGATIVE)
[2022-01-26 13:14] LABS: HEPATITIS C VIRUS ABY INDEX 0.1 INDEX (<0.8)
== END ==
LOC: M SFHCCLAY 11:39
PROVIDERS: ATTEND Family Medicine
DX: K52.9 Noninfective gastroenteritis and colitis, unspecified (principal); E87.1 Hypo-osmolality and hyponatremia; E03.9 Hypothyroidism, unspecified

== ENCOUNTER → 2022-07-26 | Outpatient (REF) | payer OTHER ==
[~2022-07-26] MED LIST changes: +FLUT50SP17; -FLUTISP
[2022-07-26 17:45] LABS: BASO # 0.1 10^3/uL (0.0-0.2); BASO % 1.6 % (0.0-1.0); EOS # 0.1 10^3/uL (0.0-0.5); EOS % 3.5 % (0.0-3.0); HEMATOCRIT 35.4 % (36.0-47.0); HEMOGLOBIN 11.4 g/dl (12.0-15.5); LYMPH # 1.4 10^3/uL (1.5-5.0); LYMPH % 44.4 % (24.0-44.0); MEAN CORPUSCULAR HEMOGLOBIN 28.7 pg (27.0-33.0); MEAN CORPUSCULAR HGB CONC 32.2 g/dl (32.0-36.5); MEAN CORPUSCULAR VOLUME 89.2 fl (80.0-96.0); MONO # 0.4 10^3/uL (0.0-0.8); MONO % 13.5 % (2.0-8.0); NEUTROPHILS # 1.2 10^3/uL (1.5-8.5); PLATELET COUNT, AUTOMATED 283 10^3/uL (150-450); RED BLOOD COUNT 3.97 10^6/uL (4.00-5.40); WHITE BLOOD COUNT 3.1 10^3/uL (4.0-10.0)
[2022-07-26 17:56] LABS: ALBUMIN 3.5 G/DL (3.2-5.2); ALKALINE PHOSPHATASE 82 U/L (46-116); ALT/SGPT 13 U/L (7.0-40); AST/SGOT 23 U/L (<34); BILIRUBIN,TOTAL 0.3 MG/DL (0.3-1.2); BLOOD UREA NITROGEN 11 MG/DL (9-23); CARBON DIOXIDE LEVEL 26 MMOL/L (20-31); CHLORIDE LEVEL 103 MMOL/L (98-107); GLOMERULAR FILTRATION RATE > 60.0 (>45); GLUCOSE, FASTING 82 MG/DL (74-106); IRON (FE) 57 UG/DL (50-170); PERCENT SATURATION 15.1 % (13.2-45.0); POTASSIUM SERUM 4.5 MMOL/L (3.5-5.1); SODIUM LEVEL 137 MMOL/L (136-145); TOTAL IRON BINDING CAPACITY 378 UG/DL (250-425); TOTAL PROTEIN 6.7 G/DL (5.7-8.2)
[2022-07-26 17:57] LABS: PTH INTACT 91.1 PG/ML (18.5-88.0)
[2022-07-26 17:58] LABS: FREE T4 1.19 NG/DL (0.89-1.76); THYROID STIMULATING HORMONE 0.608 uIU/ML (0.55-4.78)
[2022-07-26 17:59] LABS: FOLATE 8.62 NG/ML (>5.4); VITAMIN B12 LEVEL 228 PG/ML (211-911)
== END ==
LOC: M SFHCCLAY 10:27
PROVIDERS: ATTEND Family Medicine
DX: F32.9 Major depressive disorder, single episode, unspecified (principal); E03.9 Hypothyroidism, unspecified; E78.00 Pure hypercholesterolemia, unspecified; N25.81 Secondary hyperparathyroidism of renal origin; K76.0 Fatty (change of) liver, not elsewhere classified; Z91.02 Food additives allergy status; F10.20 Alcohol dependence, uncomplicated; Z98.84 Bariatric surgery status

== ENCOUNTER → 2022-07-31 | Outpatient (REF) | payer OTHER | LOC: M SFHCCLAY 09:51 | PROVIDERS: ATTEND Family Medicine | DX: E03.9 Hypothyroidism, unspecified (principal) ==

== ENCOUNTER → 2022-10-04 | Outpatient (REF) | payer OTHER ==
[2022-10-04 17:14] LABS: BASO % 0.9 % (0.0-1.0); EOS # 0.1 10^3/uL (0.0-0.5); HEMATOCRIT 36.9 % (36.0-47.0); LYMPH # 1.3 10^3/uL (1.5-5.0); LYMPH % 38.9 % (24.0-44.0); MEAN CORPUSCULAR HEMOGLOBIN 29.7 pg (27.0-33.0); MEAN CORPUSCULAR HGB CONC 32.5 g/dl (32.0-36.5); MEAN CORPUSCULAR VOLUME 91.3 fl (80.0-96.0); MONO # 0.4 10^3/uL (0.0-0.8); MONO % 11.2 % (2.0-8.0); NEUTROPHILS # 1.5 10^3/uL (1.5-8.5); NEUTROPHILS % 44.7 % (36.0-66.0); PLATELET COUNT, AUTOMATED 259 10^3/uL (150-450); RED BLOOD COUNT 4.04 10^6/uL (4.00-5.40); WHITE BLOOD COUNT 3.3 10^3/uL (4.0-10.0)
[2022-10-04 17:15] LABS: LIPASE 27 U/L (12-53)
[2022-10-04 17:17] LABS: ALBUMIN 3.1 G/DL (3.2-5.2); ALKALINE PHOSPHATASE 76 U/L (46-116); ALT/SGPT 12 U/L (7.0-40); AST/SGOT 14 U/L (<34); BILIRUBIN,TOTAL 0.6 MG/DL (0.3-1.2); BLOOD UREA NITROGEN 14 MG/DL (9-23); CALCIUM LEVEL 8.9 MG/DL (8.3-10.6); CARBON DIOXIDE LEVEL 30 MMOL/L (20-31); CHLORIDE LEVEL 103 MMOL/L (98-107); CREATININE FOR GFR 0.69 MG/DL (0.55-1.30); GLOMERULAR FILTRATION RATE > 60.0 (>45); GLUCOSE, FASTING 95 MG/DL (74-106); POTASSIUM SERUM 4.2 MMOL/L (3.5-5.1); SODIUM LEVEL 139 MMOL/L (136-145); TOTAL PROTEIN 6.6 G/DL (5.7-8.2)
== END ==
LOC: M SFHCCLAY 09:28
PROVIDERS: ATTEND Physician Assistant Medical
DX: R11.0 Nausea (principal)

== ENCOUNTER → 2022-10-04 | Outpatient (CLI) | payer OTHER | LOC: M CLY 09:32 | PROVIDERS: ATTEND Physician Assistant Medical | DX: R06.02 Shortness of breath (principal) ==

== ENCOUNTER → 2022-12-05 | Outpatient (REF) | payer OTHER ==
[2022-12-05 18:28] LABS: EOS # 0.1 10^3/uL (0.0-0.5); HEMATOCRIT 38.9 % (36.0-47.0); HEMOGLOBIN 12.9 g/dl (12.0-15.5); LYMPH # 1.7 10^3/uL (1.5-5.0); MEAN CORPUSCULAR HEMOGLOBIN 31.9 pg (27.0-33.0); MEAN CORPUSCULAR HGB CONC 33.2 g/dl (32.0-36.5); MEAN CORPUSCULAR VOLUME 96.3 fl (80.0-96.0); MONO # 0.4 10^3/uL (0.0-0.8); MONO % 10.7 % (2.0-8.0); NEUTROPHILS # 1.7 10^3/uL (1.5-8.5); NEUTROPHILS % 44.3 % (36.0-66.0); PLATELET COUNT, AUTOMATED 291 10^3/uL (150-450); RED BLOOD COUNT 4.04 10^6/uL (4.00-5.40); WHITE BLOOD COUNT 3.9 10^3/uL (4.0-10.0)
[2022-12-05 18:30] LABS: BLOOD UREA NITROGEN 13 MG/DL (9-23); CALCIUM LEVEL 8.8 MG/DL (8.3-10.6); CARBON DIOXIDE LEVEL 26 MMOL/L (20-31); CHLORIDE LEVEL 106 MMOL/L (98-107); CREATININE FOR GFR 0.79 MG/DL (0.55-1.30); GLOMERULAR FILTRATION RATE > 60.0 (>45); GLUCOSE, FASTING 96 MG/DL (74-106); POTASSIUM SERUM 3.8 MMOL/L (3.5-5.1); SODIUM LEVEL 138 MMOL/L (136-145)
== END ==
LOC: M SFHCCLAY 13:05
PROVIDERS: ATTEND Family Medicine
DX: E03.9 Hypothyroidism, unspecified (principal); N25.81 Secondary hyperparathyroidism of renal origin

== ENCOUNTER → 2022-12-07 | Outpatient (REF) | payer MEDICAID ==
[2022-12-07 18:41] LABS: FREE T3 2.5 PG/ML (2.3-4.2); THYROID STIMULATING HORMONE 0.343 uIU/ML (0.55-4.78)
[2022-12-07 18:47] LABS: THYROID PEROXIDASE ANTIBODY < 28.0 U/ML (<60.0)
== END ==
LOC: M SFHCCLAY 09:58
PROVIDERS: ATTEND Family Medicine
DX: E03.9 Hypothyroidism, unspecified (principal)

== ENCOUNTER → 2023-04-25 | Outpatient (CLI) | payer OTHER ==
[~2023-04-25] MED LIST changes: -FLUT50SP17; +FLUTISP
== END ==
LOC: M PLAIMG 10:20
PROVIDERS: ATTEND Family Medicine
DX: I77.810 Thoracic aortic ectasia (principal)

== ENCOUNTER → 2023-05-18 | Outpatient (REF) | payer MEDICAID, OTHER | LOC: M SFHCWAGY 12:58 | PROVIDERS: ATTEND Nurse Practitioner Family | DX: Z12.4 Encounter for screening for malignant neoplasm of cervix (principal) ==

== ENCOUNTER → 2023-05-30 | Outpatient (REF) | payer OTHER, MEDICAID | LOC: M SFHCWAGY 14:59 | PROVIDERS: ATTEND Nurse Practitioner Family | DX: Z12.4 Encounter for screening for malignant neoplasm of cervix (principal); Z01.419 Encounter for gynecological examination (general) (routine) without abnormal findings; Z77.9 Other contact with and (suspected) exposures hazardous to health ==

== ENCOUNTER → 2023-08-09 | Outpatient (REF) | payer OTHER, MEDICAID ==
[2023-08-09 19:14] LABS: HEMOGLOBIN 12.4 g/dl (12.0-15.5); MEAN CORPUSCULAR HEMOGLOBIN 29.7 pg (27.0-33.0); MEAN CORPUSCULAR HGB CONC 32.6 g/dl (32.0-36.5); MEAN CORPUSCULAR VOLUME 90.9 fl (80.0-96.0); PLATELET COUNT, AUTOMATED 228 10^3/uL (150-450); RED BLOOD COUNT 4.18 10^6/uL (4.00-5.40)
[2023-08-09 19:38] LABS: IRON (FE) 86 UG/DL (50-170)
[2023-08-09 19:40] LABS: ALBUMIN 3.9 G/DL (3.2-5.2); ALKALINE PHOSPHATASE 112 U/L (46-116); ALT/SGPT 39 U/L (7.0-40); AST/SGOT 73 U/L (<34); BILIRUBIN,TOTAL 0.6 MG/DL (0.3-1.2); BLOOD UREA NITROGEN 14 MG/DL (9-23); CARBON DIOXIDE LEVEL 26 MMOL/L (20-31); CHLORIDE LEVEL 103 MMOL/L (98-107); CHOLESTEROL LEVEL 216 MG/DL (<200); CREATININE FOR GFR 0.61 MG/DL (0.55-1.30); GLOMERULAR FILTRATION RATE > 60.0 (>45); GLUCOSE, FASTING 97 MG/DL (74-106); HDL CHOLESTEROL 119.6 MG/DL (>40); MAGNESIUM LEVEL 1.8 MG/DL (1.8-2.4); NON-HDL-C 96.4 MG/DL; PERCENT SATURATION 28.8 % (13.2-45.0); POTASSIUM SERUM 4.6 MMOL/L (3.5-5.1); SODIUM LEVEL 136 MMOL/L (136-145); TOTAL IRON BINDING CAPACITY 299 UG/DL (250-425); TRIGLYCERIDES LEVEL 102 MG/DL (<150)
[2023-08-09 19:42] LABS: FREE T4 1.11 NG/DL (0.89-1.76)
[2023-08-09 19:43] LABS: THYROID STIMULATING HORMONE 3.832 uIU/ML (0.55-4.78)
[2023-08-09 19:46] LABS: FOLATE 9.42 NG/ML (>5.4); VITAMIN B12 LEVEL 249 PG/ML (211-911)
[2023-08-09 19:47] LABS: PTH INTACT 41.5 PG/ML (18.5-88.0)
== END ==
LOC: M SFHCCLAY 10:32
PROVIDERS: ATTEND Family Medicine
DX: Z98.84 Bariatric surgery status (principal); N25.81 Secondary hyperparathyroidism of renal origin; E03.9 Hypothyroidism, unspecified

== ENCOUNTER → 2024-03-03 | Outpatient (REF) | payer OTHER ==
[2024-03-03 19:39] LABS: THYROID STIMULATING HORMONE 1.464 uIU/ML (0.55-4.78); THYROXINE (T4) 9.8 UG/DL (4.5-10.9)
[2024-03-03 19:41] LABS: FREE THYROXINE INDEX 3.2 % (1.3-4.8); T UPTAKE 33.1 % (22.5-37.0)
[2024-03-03 20:10] LABS: HEMOGLOBIN A1c 4.9 % (4.0-6.0)
== END ==
LOC: M LAB REF 18:29
PROVIDERS: ATTEND Psychiatry & Neurology Neurology
DX: R29.6 Repeated falls (principal)

== ENCOUNTER → 2024-03-03 | Outpatient (REF) | payer OTHER ==
[2024-03-03 19:12] LABS: HEMOGLOBIN A1c 4.8 % (4.0-6.0)
[2024-03-03 19:21] LABS: ALBUMIN 3.6 G/DL (3.2-5.2); ALKALINE PHOSPHATASE 106 U/L (35-104); ALT/SGPT 205 U/L (7.0-40); AST/SGOT 208 U/L (<34); BILIRUBIN,TOTAL 0.4 MG/DL (0.3-1.2); BLOOD UREA NITROGEN 14 MG/DL (9-23); CALCIUM LEVEL 9.8 MG/DL (8.3-10.6); CARBON DIOXIDE LEVEL 26 MMOL/L (20-31); CHLORIDE LEVEL 102 MMOL/L (98-107); CHOLESTEROL LEVEL 208 MG/DL (<200); CHOLESTEROL RISK RATIO 2.35 (<5); CREATININE FOR GFR 0.55 MG/DL (0.55-1.30); GLOMERULAR FILTRATION RATE > 60.0 (>45); GLUCOSE, FASTING 91 MG/DL (74-106); HDL CHOLESTEROL 88.4 MG/DL (>40); LDL CHOLESTEROL 105.6 MG/DL (<100); MAGNESIUM LEVEL 1.7 MG/DL (1.8-2.4); NON-HDL-C 119.6 MG/DL; POTASSIUM SERUM 3.8 MMOL/L (3.5-5.1); SODIUM LEVEL 138 MMOL/L (136-145); TOTAL PROTEIN 7.1 G/DL (5.7-8.2); TRIGLYCERIDES LEVEL 70 MG/DL (<150)
[2024-03-03 19:24] LABS: THYROID STIMULATING HORMONE 1.763 uIU/ML (0.55-4.78)
[2024-03-03 19:25] LABS: FREE T4 1.27 NG/DL (0.89-1.76)
== END ==
LOC: M SFHCCLAY 13:06
PROVIDERS: ATTEND Physician Assistant
DX: R29.6 Repeated falls (principal); F32.9 Major depressive disorder, single episode, unspecified; J45.20 Mild intermittent asthma, uncomplicated; E03.9 Hypothyroidism, unspecified; J30.9 Allergic rhinitis, unspecified; Z98.84 Bariatric surgery status; I77.810 Thoracic aortic ectasia; E65 Localized adiposity; K21.9 Gastro-esophageal reflux disease without esophagitis; R03.0 Elevated blood-pressure reading, without diagnosis of hypertension; K52.9 Noninfective gastroenteritis and colitis, unspecified; B35.1 Tinea unguium

== ENCOUNTER → 2024-06-09 | Outpatient (REF) | payer OTHER ==
[2024-06-09 18:40] LABS: ALBUMIN 3.3 G/DL (3.2-5.2); ALKALINE PHOSPHATASE 150 U/L (35-104); ALT/SGPT 34 U/L (7.0-40); AST/SGOT 37 U/L (<34); BILIRUBIN,TOTAL 0.3 MG/DL (0.3-1.2); BLOOD UREA NITROGEN 11 MG/DL (9-23); CALCIUM LEVEL 9.2 MG/DL (8.3-10.6); CARBON DIOXIDE LEVEL 26 MMOL/L (20-31); CHLORIDE LEVEL 104 MMOL/L (98-107); CREATININE FOR GFR 0.66 MG/DL (0.55-1.30); GLOMERULAR FILTRATION RATE > 90.0 (>45); GLUCOSE, FASTING 81 MG/DL (74-106); MAGNESIUM LEVEL 1.8 MG/DL (1.8-2.4); POTASSIUM SERUM 4.5 MMOL/L (3.5-5.1); SODIUM LEVEL 139 MMOL/L (136-145)
[2024-06-09 18:44] LABS: FOLATE 9.9 NG/ML (>5.4)
[2024-06-09 18:45] LABS: THYROID STIMULATING HORMONE 0.636 uIU/ML (0.55-4.78)
[2024-06-09 18:46] LABS: FREE T4 1.22 NG/DL (0.89-1.76)
[2024-06-09 18:49] LABS: TOTAL 25(OH) VITAMIN D 25.2 NG/ML (20.0-100.0); VITAMIN B12 LEVEL 179 PG/ML (211-911)
[2024-06-09 18:51] LABS: HEMATOCRIT 34.6 % (36.0-47.0); HEMOGLOBIN 11.2 g/dl (12.0-15.5); MEAN CORPUSCULAR HEMOGLOBIN 29.2 pg (27.0-33.0); MEAN CORPUSCULAR HGB CONC 32.4 g/dl (32.0-36.5); MEAN CORPUSCULAR VOLUME 90.3 fl (80.0-96.0); PLATELET COUNT, AUTOMATED 357 10^3/uL (150-450); RED BLOOD COUNT 3.83 10^6/uL (4.00-5.40); WHITE BLOOD COUNT 4.8 10^3/uL (4.0-10.0)
[2024-06-09 19:00] LABS: HEPATITIS B SURFACE ANTIGEN NEGATIVE (NEGATIVE)
[2024-06-09 19:16] LABS: HEPATITIS B CORE ANTIBODY IGM NEGATIVE (NEGATIVE)
[2024-06-09 19:17] LABS: HEPATITIS C VIRUS ABY INDEX 0.05 INDEX (<0.8)
[2024-06-10 14:13] LABS: IRON (FE) 59 UG/DL (50-170); PERCENT SATURATION 16.8 % (13.2-45.0); TOTAL IRON BINDING CAPACITY 351 UG/DL (250-425)
[2024-06-10 14:15] LABS: FERRITIN 38.1 NG/ML (7.3-270.7)
== END ==
LOC: M SFHCCLAY 13:42
PROVIDERS: ATTEND Physician Assistant
DX: R79.89 Other specified abnormal findings of blood chemistry (principal); F32.9 Major depressive disorder, single episode, unspecified; K21.9 Gastro-esophageal reflux disease without esophagitis; R03.0 Elevated blood-pressure reading, without diagnosis of hypertension; E03.9 Hypothyroidism, unspecified; Z98.84 Bariatric surgery status

== ENCOUNTER → 2024-06-09 | Outpatient (REF) | payer OTHER ==
[2024-06-09 18:39] LABS: ALBUMIN 3.3 G/DL (3.2-5.2); ALKALINE PHOSPHATASE 147 U/L (35-104); ALT/SGPT 34 U/L (7.0-40); AST/SGOT 39 U/L (<34); BILIRUBIN,TOTAL 0.3 MG/DL (0.3-1.2); BLOOD UREA NITROGEN 11 MG/DL (9-23); CALCIUM LEVEL 8.8 MG/DL (8.3-10.6); CARBON DIOXIDE LEVEL 25 MMOL/L (20-31); CHLORIDE LEVEL 104 MMOL/L (98-107); CHOLESTEROL LEVEL 153 MG/DL (<200); CHOLESTEROL RISK RATIO 3.17 (<5); CREATININE FOR GFR 0.67 MG/DL (0.55-1.30); GLOMERULAR FILTRATION RATE > 90.0 (>45); GLUCOSE, FASTING 84 MG/DL (74-106); HDL CHOLESTEROL 48.2 MG/DL (>40); LDL CHOLESTEROL 84.4 MG/DL (<100); MAGNESIUM LEVEL 1.8 MG/DL (1.8-2.4); NON-HDL-C 104.8 MG/DL; POTASSIUM SERUM 4.5 MMOL/L (3.5-5.1); SODIUM LEVEL 138 MMOL/L (136-145); TOTAL PROTEIN 6.9 G/DL (5.7-8.2); TRIGLYCERIDES LEVEL 102 MG/DL (<150)
[2024-06-09 18:51] LABS: BASO # 0.1 10^3/uL (0.0-0.2); BASO % 1.6 % (0.0-1.0); EOS # 0.1 10^3/uL (0.0-0.5); EOS % 1.8 % (0.0-3.0); HEMATOCRIT 35.3 % (36.0-47.0); HEMOGLOBIN 11.3 g/dl (12.0-15.5); LYMPH # 1.8 10^3/uL (1.5-5.0); LYMPH % 36.6 % (24.0-44.0); MEAN CORPUSCULAR HEMOGLOBIN 28.8 pg (27.0-33.0); MEAN CORPUSCULAR VOLUME 90.1 fl (80.0-96.0); MONO # 0.6 10^3/uL (0.0-0.8); MONO % 11.1 % (2.0-8.0); NEUTROPHILS # 2.4 10^3/uL (1.5-8.5); NEUTROPHILS % 48.5 % (36.0-66.0); PLATELET COUNT, AUTOMATED 352 10^3/uL (150-450); RED BLOOD COUNT 3.92 10^6/uL (4.00-5.40)
[2024-06-09 18:52] LABS: HEMOGLOBIN A1c 4.5 % (4.0-6.0)
[2024-06-11 09:22] LABS: LDL DIRECT 107 mg/dL (<100)
== END ==
LOC: M LABDRAWC 17:18
PROVIDERS: ATTEND Internal Medicine Cardiovascular Disease
DX: Z82.49 Family history of ischemic heart disease and other diseases of the circulatory system (principal); J45.998 Other asthma; R06.09 Other forms of dyspnea; Z13.1 Encounter for screening for diabetes mellitus; E78.6 Lipoprotein deficiency; E78.2 Mixed hyperlipidemia; I48.0 Paroxysmal atrial fibrillation

== ENCOUNTER → 2024-06-10 | Outpatient (REF) | payer OTHER | LOC: M SFHCCLAY 12:14 | PROVIDERS: ATTEND Physician Assistant | DX: R35.0 Frequency of micturition (principal) ==

== ENCOUNTER → 2025-01-15 | Outpatient (REF) | payer MEDICARE, MEDICAID ==
[~2025-01-15] MED LIST changes: +CYAN250T5 PO; -VITA250T7 PO
[2025-01-15 12:57] LABS: PLATELET COUNT, AUTOMATED 280 10^3/uL (150-450)
[2025-01-15 13:04] LABS: ALT/SGPT 24 U/L (7.0-40); AST/SGOT 49 U/L (<34); CALCIUM LEVEL 9.2 MG/DL (8.3-10.6); CARBON DIOXIDE LEVEL 25 MMOL/L (20-31); CHLORIDE LEVEL 93 MMOL/L (98-107); CHOLESTEROL LEVEL 163 MG/DL (<200); CHOLESTEROL RISK RATIO 1.83 (<5); CREATININE FOR GFR 0.66 MG/DL (0.55-1.30); FREE T4 1.45 NG/DL (0.89-1.76); GLOMERULAR FILTRATION RATE > 90.0 (>45); LDL CHOLESTEROL 52.0 MG/DL (<100); MAGNESIUM LEVEL 1.8 MG/DL (1.8-2.4); NON-HDL-C 74.2 MG/DL; POTASSIUM SERUM 4.2 MMOL/L (3.5-5.1); SODIUM LEVEL 132 MMOL/L (136-145); TRIGLYCERIDES LEVEL 111 MG/DL (<150); VITAMIN B12 LEVEL 248 PG/ML (211-911)
[2025-01-15 13:44] LABS: ESTIMATED AVERAGE GLUCOSE 94.0 MG/DL (60-110)
== END ==
LOC: M SFHCCLAY 07:37
PROVIDERS: ATTEND Physician Assistant
DX: R79.89 Other specified abnormal findings of blood chemistry (principal); D64.9 Anemia, unspecified; E53.8 Deficiency of other specified B group vitamins; E03.9 Hypothyroidism, unspecified; Z98.84 Bariatric surgery status; F32.9 Major depressive disorder, single episode, unspecified; K21.9 Gastro-esophageal reflux disease without esophagitis; Z12.31 Encounter for screening mammogram for malignant neoplasm of breast; N95.8 Other specified menopausal and perimenopausal disorders; J45.20 Mild intermittent asthma, uncomplicated; J30.9 Allergic rhinitis, unspecified; K52.9 Noninfective gastroenteritis and colitis, unspecified; B35.1 Tinea unguium